=== PATIENT | male | born 1975 | race Caucasian/White ===

== ENCOUNTER 2016-12-25 20:20 | Emergency (ER) | payer MEDICAID ==
[2016-12-25] MEDS ORDERED: ASPIRIN 81 MG TABLET, CHEWABLE PO ONE (20:30)
--- NOTE | 2016-12-25 20:51 | ER Document Report ---
ED General - General Chief Complaint: Chest Pain Stated Complaint: CHEST PAIN Mode of Arrival: Medic Information source: Patient, Relative, Emergency Med Personnel Notes: Patient presents to the emergency department with complaints of left-sided chest pain that radiates down his arm. He reports that he was laying down of the that he started feeling funny tightness in his chest and shortness of breath , he felt like somebody was stepping on his chest. He reports his left hand became tingly and it radiated up his left arm. Patient reports that he felt dizzy and has vomited multiple times. reports that they were on their way to [facility] when he started passing out on her, she got scared and called ambulance. Ambulance brought him here. He denies history of trauma. He reports that he had an OK many years ago. He reports father had a OK at 45 years old. Patient does smoke. EMS gave him 3 sublingual nitros Zofran. The also placed Nitropaste on his chest. He reports no nausea at this time and reports pain almost gone. TRAVEL OUTSIDE OF THE [place] IN LAST 30 DAYS: No - HPI Onset: Just prior to arrival Onset/Duration: Sudden Quality of pain: Other - tightness Severity: Mild Pain Level: 2 Associated symptoms: Nausea, Vomiting Exacerbated by: Denies Relieved by: Denies Similar symptoms previously: Yes Recently seen / treated by doctor: No - Related Data Allergies/Adverse Reactions: No Known Allergies Allergy (Unverified 05/24/16 10:54) Home Medications: Current Home Medications Duloxetine HCl 60 mg PO BID 12/25/16 [History] Oxycodone HCl 20 mg PO BIDP PRN 12/25/16 [History] Past Medical History - General Information source: Patient - Social History Smoking Status: Current Every Day Smoker Cigarette use (# per day): Yes Chew tobacco use (# tins/day): No Smoking Education Provided: Yes Frequency of alcohol use: None Drug Abuse: None Lives with: Family Family History: Reviewed & Not Pertinent - Past Medical History Cardiac Medical History: Denies: Hx Coronary Artery Disease, Hx Heart Attack, Hx Hypertension Pulmonary Medical History: Denies: Hx Asthma, Hx Bronchitis, Hx COPD, Hx Pneumonia Neurological Medical History: Denies: Hx Cerebrovascular Accident, Hx Seizures Musculoskeltal Medical History: Denies Hx Arthritis Past Surgical History: Reports: Hx Orthopedic Surgery - Immunizations Hx Diphtheria, Pertussis, Tetanus Vaccination: Yes Review of Systems - Review of Systems Notes: Review HPI for review of systems., All other systems negative Physical Exam - Vital signs Vitals: Temp Pulse 98.5 F 71 12/25/16 20:20 12/25/16 20:20 - Notes Notes: PHYSICAL EXAMINATION: GENERAL: Well-appearing and in no acute distress nontoxic looking HEAD: Atraumatic, normocephalic. EYES: Pupils equal round and reactive to light, extraocular movements intact, sclera anicteric, conjunctiva are normal. ENT: nares patent, oropharynx clear without exudates. Moist mucous membranes. NECK: Normal range of motion, supple without lymphadenopathy LUNGS: CTAB and equal. No wheezes rales or rhonchi. HEART: Regular rate and rhythm without murmurs - nitro paste in place ABDOMEN: Soft, no tenderness. No guarding, no rebound BACK: Denies pain EXTREMITIES: Normal range of motion, no pitting edema. No cyanosis. NEUROLOGICAL: Cranial nerves grossly intact. Normal sensory/motor exams. PSYCH: Normal mood, normal affect. SKIN: Warm, Dry, normal turgor, no rashes or lesions noted Course - Re-evaluation Re-evalutation: 12/25/16 23:20 I was called back into patient room because he wants to leave AM. Apparently patient has a lawsuit pending against the hospital and he doesn't want to stay here. I discussed the importance of staying up evaluation of his heart. He declines patient was instructed on the possibility of leaving here having a heart attack and dying. He reports he will follow-up with his primary care provider in the morning. I instructed patient that if he did not feel comfortable here that he should go directly to another hospital. Patient verbalized understanding to everything I said but still reports he wants to leave [facility]. Dr Pereira updated on patient. The patient has decided not to proceed with further recommended testing or treatment to determine the cause of their symptoms. The risks and alternatives to the recommendations were discussed and the patient was understanding. The patient appears clinically to have the capacity to make this decision. Patient was instructed that he could return to the emergency department at any time to complete the testing treatment. - Vital Signs Vital signs: Temp Pulse Resp BP Pulse Ox 98.5 F 71 24 H 116/81 93 12/25/16 20:20 12/25/16 20:20 12/25/16 23:16 12/25/16 23:16 12/25/16 23:16 - Laboratory Result Diagrams: 12/25/16 20:35 12/25/16 20:35 Laboratory results interpreted by me: 12/25/16 12/25/16 20:35 20:35 RDW 14.5 H Sodium 145.5 H Chloride 111 H Glucose 129 H - Diagnostic Test Radiology reviewed: Image reviewed, Reports reviewed - RAD/ CHEST PA/LAT IMPRESSION: No acute findings. - EKG Interpretation by Me EKG shows normal: Sinus rhythm When compared to previous EKG there are: No significant change Discharge - Discharge Clinical Impression: Chest pain Qualifiers: Chest pain type: unspecified Qualified Code(s): R07.9 - Chest pain, unspecified Condition: Stable Disposition: AGAINST MEDICAL ADVICE Instructions: Aspirin (Cardiac) ([facility]), Chest Pain of Unclear Cause ([facility]) Additional Instructions: *You have been evaluated for chest pain *You have decided to leave against medical advice. Your evaluation has not been completed. You are at risk of leaving the Emergency Department and having a heart attack that could lead to your . *Follow up with your primary care provider tomorrow AM *Take aspirin daily *Return to [facility] ED for worsening condition, changes, needs *Return to ED if not better in 24 hours
[2016-12-25 20:53] LABS: ABSOLUTE BASOPHILS # (AUTO) 0.1 10^3/uL (0.0-0.2); ABSOLUTE EOSINOPHILS # (AUTO) 0.2 10^3/uL (0.0-0.6); ABSOLUTE LYMPHOCYTES (AUTO) 1.9 10^3/uL (0.5-4.7); ABSOLUTE MONOCYTES (AUTO) 0.6 10^3/uL (0.1-1.4); BASOPHILS % (AUTO) 0.7 % (0-2); EOSINOPHILS % (AUTO) 2.1 % (0-6); HEMATOCRIT 44.4 % (37.9-51.0); HEMOGLOBIN 15.3 g/dL (13.5-17.0); HGB HCT DIFFERENCE 1.5; LYMPHOCYTES % (AUTO) 24.1 % (13-45); MEAN CORPUSCULAR HEMOGLOBIN 30.7 pg (27.0-33.4); MEAN CORPUSCULAR HGB CONC 34.4 g/dL (32.0-36.0); MEAN CORPUSCULAR VOLUME 89 fl (80-97); RED BLOOD COUNT 4.97 10^6/uL (4.35-5.55); RED CELL DISTRIBUTION WIDTH 14.5 % (11.5-14.0); SEGMENTED NEUTROPHILS % (AUTO) 65.1 % (42-78); WHITE BLOOD COUNT 7.7 10^3/uL (4.0-10.5)
[2016-12-25 21:10] LABS: ALANINE AMINOTRANSFERASE 38 U/L (21-72); ALBUMIN 3.7 g/dL (3.5-5.0); ALKALINE PHOSPHATASE 92 U/L (38-126); ANION GAP 13 (5-19); ASPARTATE AMINO TRANSFERASE 34 U/L (17-59); BILIRUBIN,DIRECT 0.3 mg/dL (0.0-0.4); BILIRUBIN,TOTAL 0.5 mg/dL (0.2-1.3); BLOOD UREA NITROGEN 15 mg/dL (7-20); CALCIUM 9.3 mg/dL (8.4-10.2); CARBON DIOXIDE 22 mmol/L (22-30); CHLORIDE 111 mmol/L (98-107); CREATINE KINASE 72 U/L (55-170); CREATININE RESULT 0.86 mg/dL (0.52-1.25); GLUCOSE 129 mg/dL (75-110); POTASSIUM 4.3 mmol/L (3.6-5.0); SODIUM 145.5 mmol/L (137-145); TOTAL PROTEIN 6.3 g/dL (6.3-8.2)
[2016-12-25 21:21] LABS: CREATINE KINASE MB < 0.22 ng/mL (<4.55); TROPONIN I < 0.012 ng/mL
[2016-12-25 21:25] LABS: APPEARANCE,URINE SLIGHTLY-CLOUDY; BILIRUBIN,URINE NEGATIVE (NEGATIVE); GLUCOSE, URINE NEGATIVE (NEGATIVE); KETONES,URINE NEGATIVE (NEGATIVE); LEUKOCYTE ESTERASE,URINE NEGATIVE (NEGATIVE); NITRITE,URINE NEGATIVE (NEGATIVE); PROTEIN,URINE NEGATIVE (NEGATIVE); URINE SPECIFIC GRAVITY 1.026; UROBILINOGEN,URINE NEGATIVE mg/dL (<2.0)
[2016-12-25 23:24] VITALS: BP 116/81
--- NOTE | 2016-12-26 13:13 | EKG REPORT ---
SEVERITY:- OTHERWISE NORMAL ECG - SINUS RHYTHM BORDERLINE LEFT AXIS DEVIATION : Confirmed by: Mariana Wagner MD 26-Dec-2016 13:12:08
== END 2016-12-25 23:37 | disposition left against medical advice (07) ==
LOC: ER 20:20
DX: R07.9 Chest pain, unspecified (principal); R42 Dizziness and giddiness; F17.210 Nicotine dependence, cigarettes, uncomplicated; Z79.899 Other long term (current) drug therapy
CPT/HCPCS: 36415; 71020; 80053; 81001; 82550; 82553; 84484; 85025; 93005; 93010; 99285

== ENCOUNTER 2017-02-16 14:28 | Day surgery (SDC) | payer MEDICAID ==
[~2017-02-16 14:28] MED LIST: CEFAZOLIN 2 GM/D5W RTU 2 GM/50 ML RTUPB IV PRN; DEXAMETHASONE SOD PHOSPHATE INJ 4 MG/1 ML VIAL ONE; LIDOCAINE 2% INJ-PF (20 MG/ML) 10 ML AMPUL ONE; ONDANSETRON HCL INJ/PF 4 MG/2 ML SDV ONE; SUCCINYLCHOLINE CHLORIDE INJ 200 MG/10 ML VIAL ONE
[2017-02-16] MEDS ORDERED: CEFAZOLIN 2 GM/D5W RTU 2 GM/50 ML RTUPB IV ONE (14:44)
[2017-02-16 14:53] LABS: APPEARANCE,URINE CLEAR; BILIRUBIN,URINE NEGATIVE (NEGATIVE); GLUCOSE, URINE NEGATIVE (NEGATIVE); KETONES,URINE NEGATIVE (NEGATIVE); LEUKOCYTE ESTERASE,URINE NEGATIVE (NEGATIVE); NITRITE,URINE NEGATIVE (NEGATIVE); PROTEIN,URINE NEGATIVE (NEGATIVE); URINE SPECIFIC GRAVITY 1.015; UROBILINOGEN,URINE NEGATIVE mg/dL (<2.0)
[2017-02-16 15:03] LABS: HEMATOCRIT 46.4 % (37.9-51.0); HEMOGLOBIN 15.5 g/dL (13.5-17.0); HGB HCT DIFFERENCE 0.1; MEAN CORPUSCULAR HEMOGLOBIN 30.3 pg (27.0-33.4); MEAN CORPUSCULAR HGB CONC 33.5 g/dL (32.0-36.0); MEAN CORPUSCULAR VOLUME 91 fl (80-97); RED BLOOD COUNT 5.13 10^6/uL (4.35-5.55); RED CELL DISTRIBUTION WIDTH 13.7 % (11.5-14.0); WHITE BLOOD COUNT 8.1 10^3/uL (4.0-10.5)
[2017-02-16] MEDS ORDERED: HYDROMORPHONE HCL INJ/PF 2 MG/ML AMPULE ONE (15:15)
[2017-02-16] MEDS ORDERED: MIDAZOLAM 2 MG/2 ML INJ ONE (15:16)
[2017-02-16] MEDS ORDERED: PROPOFOL INJ 200 MG/20 ML VIAL IV ONE (15:16)
[2017-02-16] MEDS ORDERED: FENTANYL CITRATE INJ/PF 100 MCG/2 ML AMPUL ONE (15:16)
[2017-02-16 15:25] LABS: ANION GAP 11 (5-19); BLOOD UREA NITROGEN 12 mg/dL (7-20); CALCIUM 9.7 mg/dL (8.4-10.2); CARBON DIOXIDE 23 mmol/L (22-30); CHLORIDE 108 mmol/L (98-107); CREATININE RESULT 0.89 mg/dL (0.52-1.25); GLUCOSE 93 mg/dL (75-110); POTASSIUM 4.3 mmol/L (3.6-5.0); SODIUM 141.8 mmol/L (137-145)
[2017-02-16] MEDS ORDERED: ALBUTEROL SULFATE 0.083% NEB 2.5 MG/3 ML AMPUL NEB ONE (15:30)
[2017-02-16] MEDS ORDERED: RINGERS SOLUTION,LACTATED 1,000 ML IV PRN (16:00)
[2017-02-16] MEDS ORDERED: RINGERS SOLUTION,LACTATED 1,000 ML IV ONE (16:00)
[2017-02-16] MEDS ORDERED: PROMETHAZINE HCL INJ 25 MG/1 ML VIAL IV PRN (16:06)
[2017-02-16] MEDS ORDERED: FENTANYL CITRATE INJ/PF 100 MCG/2 ML AMPUL IV PRN ×3 (16:06)
[2017-02-16] MEDS ORDERED: MORPHINE SULFATE 10 MG/ML INJ IV PRN (16:06)
[2017-02-16] MEDS ORDERED: MEPERIDINE HCL/PF INJ 25 MG/1 ML DISP.SYRIN IV PRN (16:06)
[2017-02-16] MEDS ORDERED: OXYCODONE-ACETAMINOPHEN 5-325 MG TABLET PO PRN ×2 (16:06)
[2017-02-16] MEDS ORDERED: DIPHENHYDRAMINE HCL 50 MG/ML VIAL IV PRN (16:06)
[2017-02-16] MEDS ORDERED: BUPIVACAINE HCL 0.5 % INJ/PF 30 ML SDV ONE (16:30)
[2017-02-16] MEDS: FENTANYL CITRATE INJ/PF 100 MCG/2 ML AMPUL ONE ×2 (17:43→17:50)
--- NOTE | 2017-02-16 18:19 | PDOC DISCHARGE SUMMARY ---
Discharge Summary (SDC) - Discharge Final Diagnosis: Left calcaneal osteomyelitis Date of Surgery: 02/16/17 Discharge Date: 02/16/17 Forms: ASU Anesthesia D/C Instruction, Discharge POC-Surgical Service Prescriptions: Oxycodone HCl/Acetaminophen [Percocet 7.5-325 Mg Tablet] 1 - 2 each PO Q6HP PRN #60 tablet PRN Reason: Clindamycin HCl [Cleocin 300 mg Capsule] 600 mg PO Q6 #90 cap Sulfamethoxazole/Trimethoprim [Bactrim Ds Tablet] 1 each PO Q12 #60 tablet Referrals: NIDIA DAVIS MD [ACTIVE STAFF] - Discharge Diet: As Tolerated Respiratory Treatments at Home: Deep Breathing/Coughing Discharge Activity: Keep Legs Elevated, No Lifting/Push/Pulling Home Care Assistance: None Needed Adaptive Devices on Discharge: Axillary Crutches Report the Following to Your Physician Immediately: Shortness of Breath, Vomiting, Increase in Pain, Fever over 101 Degrees, Unusual Bleeding, Redness, Swelling, Warmth, Increased Soreness, Drainage-Yellow, Drainage-Green, Drainage- Foul Smelling, Visual Disturbance, Seizure
[2017-02-16] MEDS ORDERED: OXYCODONE-ACETAMINOPHEN 5-325 MG TABLET ONE (18:24)
[2017-02-16 19:26] VITALS: BP 137/83
--- NOTE | 2017-03-13 09:08 | OPERATIVE REPORT E ---
Operative Report NAME: ORIANA VALENCIA : 1975 AGE: 41Y DATE OF SURGERY: 02/16/2017 ROOM: PREOPERATIVE DIAGNOSIS: Osteomyelitis of the left calcaneus. POSTOPERATIVE DIAGNOSIS: Osteomyelitis of the left calcaneus. OPERATION: Calcaneal biopsy with irrigation, bone debridement, and antibiotic cement beads placed. SURGEON: NIDIA NANCE M.D. ESTIMATED BLOOD LOSS: 25 mL. COMPLICATIONS: None. DRAINS: None. IMPLANTS: As above antibiotic beads. PROCEDURE: Patient was brought to the operating room when he was induced and intubated in a supine position. Patient then was placed beanbag with a lazy lateral position exposing the lateral left calcaneus. A thigh tourniquet was applied to the left lower extremity and the left lower leg and foot was prepped and draped in a normal sterile surgical fashion. Time-out was done identifying the left calcaneus as the correct site. The leg was elevated for several minutes and then the tourniquet was inflated at 300 mmHg. I used an elliptical incision to pick out the draining portion of the wound and then extended the wound both proximally and distally increasing the incision size almost a third of the initial previous incision. The elliptical portion with the draining wound was then sent to pathology. Dissection was taken quickly down to the calcaneus through previous scar tissue. I was able to expose and find the previous holes from the previous bone biopsies and then extended this an did a saucerization. I also used curettes to debride the bone and then from this I sent bone for cultures and pathology. I measured the area to be 2.5 mm in length x 9 mm in width and about 5 mm in depth. Bone did not look necrotic. In fact, it looked red and healthy with some sclerotic areas from the previous surgery but no pus. I proceeded to use then bulb irrigation to clean the wound and the debrided bone portion. Then, I proceeded to mix cement with Tobramycin mixed in it (1 gram). Once the cement was hardened to the consistency of putty, a couple of these were made and Prolene stitch was passed through them to keep them secure. Only two beads were made to fit the area of concern. Pictures were taken showing the beads in the defect. Proceeded to irrigate again the wound once the cement had hardened and to close the wound. I used a couple of PDS to approximate the calcaneus tissue. I then used a 3-0 Monocryl to do a subcuticular closure and applied Dermabond to seal the wound. I applied Steri-Strips over the Dermabond to further help with avoiding wound dehiscence. Then, I proceeded to place 4 x 4 dressing followed by ABD and soft roll. I proceeded to prepare for an Orthoglass splint to place a short-leg splint on the patient and then over wrapped it with an Nando bandage. The tourniquet was let down and the patient was placed in a supine position where he was extubated and sent to PACU in a stable condition. DICTATING PHYSICIAN: Malika DA SILVA [id number] PHY#: [id number] ID: [id number] JOB#: [id number] ACCT: [id number] cc:NIDIA NANCE M.D. >
== END 2017-02-16 19:24 | disposition home or self-care (01) ==
LOC: OROUT 14:28
PROVIDERS: ATTEND Orthopaedic Surgery
PROC: 3E01329 Introduction of Other Anti-infective into Subcutaneous Tissue, Percutaneous Approach (ICD-10-PCS; 2017-02-16)
PROC: 0QBM0ZZ Excision of Left Tarsal, Open Approach (ICD-10-PCS; principal; 2017-02-16 16:45)
DX: M86.9 Osteomyelitis, unspecified (principal); L03.119 Cellulitis of unspecified part of limb; M25.579 Pain in unspecified ankle and joints of unspecified foot; J45.909 Unspecified asthma, uncomplicated; F10.21 Alcohol dependence, in remission; Z86.14 Personal history of Methicillin resistant Staphylococcus aureus infection
CPT/HCPCS: 36415; 87070; 87205; 85027; 87075; 87077; 80048; 81001; 87186; 88305 ×2; 88312 ×2; 88311; 11044; J2250; J1100; J3010; J1170; J0330; J2405; J2704; J3490; J0690; 1480

== ENCOUNTER 2017-02-24 18:20 | Inpatient (IN) | payer MEDICAID ==
--- NOTE | 2017-02-24 19:33 | ER Document Report ---
ED Medical Screen (RME) - General Chief Complaint: Foot Pain Stated Complaint: POST OP PROBLEMS, FEVER Time Seen by Provider: 02/24/17 19:26 Mode of Arrival: Wheelchair Information source: Patient, Relative TRAVEL OUTSIDE OF THE [place] IN LAST 30 DAYS: No - HPI Patient complains to provider of: L anle pain/post-op Onset: Yesterday - pt. s/p multiple surgeries on L ankle per Dr. Venegas -- most recently had staph infeciton of the bone being treated with multiple abx -- told to come to ED by his PCP due to fever of 101 at home - Related Data Allergies/Adverse Reactions: No Known Allergies Allergy (Verified 02/24/17 19:15) Past Medical History - Past Medical History Cardiac Medical History: Denies: Hx Coronary Artery Disease, Hx Heart Attack, Hx Hypertension Pulmonary Medical History: Denies: Hx Asthma, Hx Bronchitis, Hx COPD, Hx Pneumonia Neurological Medical History: Denies: Hx Cerebrovascular Accident, Hx Seizures Renal/ Medical History: Denies: Hx Peritoneal Dialysis Musculoskeltal Medical History: Denies Hx Arthritis Past Surgical History: Reports: Hx Orthopedic Surgery - Immunizations Hx Diphtheria, Pertussis, Tetanus Vaccination: Yes Physical Exam - Vital signs Vitals: Temp Pulse Resp Pulse Ox 98.1 F 87 20 97 02/24/17 19:19 02/24/17 19:19 02/24/17 19:19 02/24/17 19:19 Course - Vital Signs Vital signs: Temp Pulse Resp BP Pulse Ox 98.1 F 87 20 97 02/24/17 19:19 02/24/17 19:19 02/24/17 19:19 02/24/17 19:19
[2017-02-24 20:09] LABS: ABSOLUTE BASOPHILS # (AUTO) 0.1 10^3/uL (0.0-0.2); ABSOLUTE EOSINOPHILS # (AUTO) 0.2 10^3/uL (0.0-0.6); ABSOLUTE LYMPHOCYTES (AUTO) 2.3 10^3/uL (0.5-4.7); ABSOLUTE MONOCYTES (AUTO) 0.7 10^3/uL (0.1-1.4); BASOPHILS % (AUTO) 0.7 % (0-2); EOSINOPHILS % (AUTO) 2.3 % (0-6); HEMATOCRIT 48.5 % (37.9-51.0); HEMOGLOBIN 16.3 g/dL (13.5-17.0); HGB HCT DIFFERENCE 0.4; LYMPHOCYTES % (AUTO) 28.5 % (13-45); MEAN CORPUSCULAR HEMOGLOBIN 30.3 pg (27.0-33.4); MEAN CORPUSCULAR HGB CONC 33.5 g/dL (32.0-36.0); MEAN CORPUSCULAR VOLUME 90 fl (80-97); MONOCYTES % (AUTO) 8.3 % (3-13); RED BLOOD COUNT 5.37 10^6/uL (4.35-5.55); RED CELL DISTRIBUTION WIDTH 13.6 % (11.5-14.0); SEGMENTED NEUTROPHILS % (AUTO) 60.2 % (42-78); WHITE BLOOD COUNT 8.2 10^3/uL (4.0-10.5)
[2017-02-24 20:13] LABS: APPEARANCE,URINE SLIGHTLY-CLOUDY; BILIRUBIN,URINE NEGATIVE (NEGATIVE); GLUCOSE, URINE NEGATIVE (NEGATIVE); KETONES,URINE NEGATIVE (NEGATIVE); LEUKOCYTE ESTERASE,URINE NEGATIVE (NEGATIVE); NITRITE,URINE NEGATIVE (NEGATIVE); PROTEIN,URINE NEGATIVE (NEGATIVE); PROTHROMBIN TIME 12.3 SEC (11.4-15.4); URINE SPECIFIC GRAVITY 1.026; UROBILINOGEN,URINE NEGATIVE mg/dL (<2.0)
[2017-02-24] MEDS ORDERED: KETOROLAC TROMETHAMINE INJ/PF 30 MG/1 ML SDV IV ONE (20:22)
[2017-02-24 20:25] LABS: ALANINE AMINOTRANSFERASE 31 U/L (21-72); ALBUMIN 4.3 g/dL (3.5-5.0); ALKALINE PHOSPHATASE 70 U/L (38-126); ANION GAP 12 (5-19); ASPARTATE AMINO TRANSFERASE 28 U/L (17-59); BILIRUBIN,DIRECT 0.3 mg/dL (0.0-0.4); BILIRUBIN,TOTAL 0.7 mg/dL (0.2-1.3); BLOOD UREA NITROGEN 16 mg/dL (7-20); CALCIUM 9.8 mg/dL (8.4-10.2); CARBON DIOXIDE 22 mmol/L (22-30); CHLORIDE 109 mmol/L (98-107); GLUCOSE 93 mg/dL (75-110); POTASSIUM 4.5 mmol/L (3.6-5.0); SODIUM 142.8 mmol/L (137-145); TOTAL PROTEIN 7.3 g/dL (6.3-8.2)
--- NOTE | 2017-02-24 20:43 | RADIOLOGY REPORT (SQ) ---
EXAM DESCRIPTION: ANKLE LEFT COMPLETE COMPLETED DATE/TIME: 02/24/2017 8:28 pm REASON FOR STUDY: L ankle pain/post- op COMPARISON: CT 08/09/2016 and radiographs 07/01/2016 and 06/22/2016 NUMBER OF VIEWS: Three views. TECHNIQUE: AP, lateral, and oblique radiographic images acquired of the left ankle. LIMITATIONS: None. FINDINGS: MINERALIZATION: Osseous sclerosis is seen in the region of the previous lucency involving the posterior calcaneus. Mineralization is otherwise normal. BONES: No acute fracture or dislocation. No worrisome bone lesions. A small amount of heterotopic ca lcification is seen at the insertion of the Achilles tendon. A tiny plantar enthesophyte is present. JOINTS: No effusions. SOFT TISSUES: Ill-defined increased density is seen within Kager's fat pad. No foreign body. OTHER: No other significant finding. IMPRESSION: Sclerosis seen in the region of a previously described calcaneal lucency is nonspecific, and may represent continued postprocedural healing. Subtle soft tissue stranding seen within Kager' s fat pad may represent postprocedural scarring; however, acute inflammation may have a similar appea sunday. Recommend correlation for possible soft tissue inflammatory change. TECHNICAL DOCUMENTATION: JOB ID: [id number] [employer]- All Rights Reserved
--- NOTE | 2017-02-24 20:47 | ER Document Report ---
ED Extremity Problem, Lower - General Chief Complaint: Foot Pain Stated Complaint: POST OP PROBLEMS, FEVER Time Seen by Provider: 02/24/17 19:26 Mode of Arrival: Ambulatory Information source: Patient Notes: 41 yo with hx left ankle MRSA, staph, 2 other bacteria, 4th ankle surgery dr. melara 02-16, post op recheck on sunday (2mg dilaudid in between since sunday every 5 hours), 20mg oxycodone 4-5 per day without working, much worse last night. temperature today 101.6. The negative air vac vibrating, worked on it wasn't sucking, took it off. (full ankle hx- Hx arthrits in left ankle 1 year ago, got infected in skin, 2 more surgery within 60 days, still wasn't healing, recent MRI showed osteomylitis in several areas, bone biopsy showed- sent to [facility]- referral for picc line not in yet- on bactrim and cipro now, antibiotic carlos in the bone hoping to fight it from the inside.) No cough or SOB, No n/v/d. TRAVEL OUTSIDE OF THE [place] IN LAST 30 DAYS: No - Related Data Allergies/Adverse Reactions: No Known Allergies Allergy (Verified 02/24/17 19:15) Home Medications: Current Home Medications Hydromorphone HCl [Dilaudid] 2 mg PO Q6 02/25/17 [History] Meloxicam [Mobic 7.5 mg Tablet] 7.5 mg PO BID 02/25/17 [History] Oxycodone HCl [Oxycodone HCl 10 MG Tablet] 10 mg PO Q12HP PRN 02/25/17 [History] Oxycodone HCl/Acetaminophen [Oxycodon-Acetaminophen 7.5-325] 1 tab PO Q6HP PRN 02/25/17 [History] Past Medical History - General Information source: Patient, Relative - Social History Smoking Status: Current Every Day Smoker Frequency of alcohol use: None Drug Abuse: None Lives with: Spouse/Significant other Family History: Reviewed & Not Pertinent Renal/ Medical History: Denies: Hx Peritoneal Dialysis Musculoskeltal Medical History: Reports Other - osteomylitis Past Surgical History: Reports: Hx Orthopedic Surgery - Immunizations Hx Diphtheria, Pertussis, Tetanus Vaccination: Yes Review of Systems - Review of Systems Constitutional: See HPI EENT: No symptoms reported Cardiovascular: No symptoms reported Respiratory: No symptoms reported Gastrointestinal: No symptoms reported Genitourinary: No symptoms reported Male Genitourinary: No symptoms reported Musculoskeletal: See HPI Skin: No symptoms reported Hematologic/Lymphatic: No symptoms reported Neurological/Psychological: No symptoms reported Physical Exam - Vital signs Vitals: Temp Pulse Resp Pulse Ox 98.1 F 87 20 97 02/24/17 19:19 02/24/17 19:19 02/24/17 19:19 02/24/17 19:19 Interpretation: Normal - General General appearance: Appears well, Alert, Anxious In distress: None - HEENT Head: Normocephalic, Atraumatic Eyes: Normal Pupils: PERRL Neck: Supple - Respiratory Respiratory status: No respiratory distress Chest status: Nontender Breath sounds: Normal Chest palpation: Normal - Cardiovascular Rhythm: Regular Heart sounds: Normal auscultation Murmur: No - Abdominal Inspection: Normal Distension: No distension Bowel sounds: Normal Tenderness: Nontender. No: Tender Organomegaly: No organomegaly - Back Back: Normal, Nontender. No: CVA tenderness - Extremities General upper extremity: Normal inspection, Nontender, Normal color, Normal ROM , Normal temperature General lower extremity: Normal inspection, Nontender, Normal color, Normal ROM , Normal temperature, Normal weight bearing. No: Gerson's sign Ankle: Tender - inflamed soft tissue post. calcaneus, achilles. no pus, warm joint, mild swelling, 2+ DP,no lower leg tenderness or swelling. - Neurological Neuro grossly intact: Yes Cognition: Normal Orientation: AAOx4 Grandin Coma Scale Eye Opening: Spontaneous Ebonie Coma Scale Verbal: Oriented Grandin Coma Scale Motor: Obeys Commands Grandin Coma Scale Total: 15 Speech: Normal Motor strength normal: LUE, RUE, LLE, RLE Sensory: Normal - Psychological Associated symptoms: Normal affect, Normal mood - Skin Skin Temperature: Warm Skin Moisture: Dry Skin Color: Normal Course - Re-evaluation Re-evalutation: 02/24/17 21:49 called MR and they can not do the MR flor, will have to be in the morning. 02/24/17 21:[address] michael for antibiotic orders, he also states pt needs to be admitted to ortho. 02/24/17 22:56 pt had 0 pain after dilaudid 2mg IV. asking for more pain rx at this time. chest xray is negative. Page to dr. ascencio , left message on his cell phone. calling acoustic sensor operator back, no other way to reach him. 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 labs normal, lactic acid negative. EKG NSR 02/24/17 23:25 dr ascencio did not return call, calling his cell phone again, left message. Dr. michael rec. that the pt be admitted to the ER, if dr. ascencio will not return call, then transfer the pt. to another hospital since we have no orthopedic surgeon process control specialist for the ER tonight. 02/25/17 00:05 dr ascencio as not returned call, 3rd call to cell phone through the acoustic sensor operator at this time 02/25/17 00:17 dr. guo [facility] hospitalist will not admit for medical pending orthopedic to see pt in am and MRI that they could do in the morning. 02/25/17 00:20 Patient prefers to be transferred to [place] to orthopedics there. 02/25/17 00:23 call to [facility] orthopedics. fax # [phone] demo information. Pt PCP is dr. Rubalcava [facility] internal medicine in [place]. Pt lives in [place]. 02/25/17 00:34 pt in room and they want to go to [facility] 02/25/17 00:45 dr Dyer recommended calling Dr. Calzada cell phone at [phone] concerned that transferring the patent because dr. ascencio was not calling me back. Dr Calzada has agreed to admit the patient for 23 hour observation and to order the MRI in the morning. 02/25/17 09:15 - Vital Signs Vital signs: Temp Pulse Resp BP Pulse Ox 97.7 F 49 L 17 111/72 95 02/25/17 11:21 02/25/17 11:21 02/25/17 11:21 02/25/17 11:21 02/25/17 11:21 - Laboratory Result Diagrams: 02/24/17 19:50 02/24/17 19:50 Laboratory results interpreted by me: 02/24/17 19:50 Chloride 109 H Discharge - Discharge Clinical Impression: ankle, foot, tib/fib pain, Fever, post op osteomylitis Disposition: ADMITTED OBSERVATION Admitting Provider: [facility] Unit Admitted: Medical Floor
[2017-02-24 20:57] LABS: VENOUS BLOOD BASE EXCESS -0.6 mmol/L; VENOUS BLOOD PCO2 44.1 mmHg (35-63); VENOUS BLOOD PH 7.37 (7.30-7.42)
[2017-02-24] MEDS ORDERED: ONDANSETRON HCL INJ/PF 4 MG/2 ML SDV IV ONE (21:34)
[2017-02-24] MEDS ORDERED: HYDROMORPHONE HCL INJ/PF 2 MG/ML AMPULE IV ONE ×2 (21:34→22:40)
[2017-02-24] MEDS ORDERED: VANCOMYCIN HCL INJ 1000 MG VIAL IV ONE (21:53)
[2017-02-24] MEDS ORDERED: AZTREONAM INJ 1 GM VIAL IV ONE (21:54)
--- NOTE | 2017-02-24 22:47 | RADIOLOGY REPORT (SQ) ---
EXAM DESCRIPTION: CHEST PA/LAT COMPLETED DATE/TIME: 02/24/2017 10:13 pm REASON FOR STUDY: fever, post op 5-26 COMPARISON: 12/25/2016 EXAM PARAMETERS: NUMBER OF VIEWS: two views TECHNIQUE: Digital Frontal and Lateral radiographic views of the chest acquired. RADIATION DOSE: NA LIMITATIONS: none FINDINGS: LUNGS AND PLEURA: No opacities, masses or pneumothorax. No pleural effusion. MEDIASTINUM AND HILAR STRUCTURES: No masses or contour abnormalities. HEART AND VASCULAR STRUCTURES: Heart normal size. No evidence for failure. BONES: No acute findings. HARDWARE: None in the chest. OTHER: No other significant finding. IMPRESSION: NO SIGNIFICANT RADIOGRAPHIC FINDING IN THE CHEST. TECHNICAL DOCUMENTATION: JOB ID: [id number] [employer]- All Rights Reserved
[2017-02-25] MEDS ORDERED: HYDROMORPHONE HCL INJ/PF 2 MG/ML AMPULE IV ONE (00:14)
[2017-02-25] MEDS ORDERED: DIPHENHYDRAMINE HCL 50 MG/ML VIAL IV ONE (00:33)
[2017-02-25] MEDS ORDERED: HYDROMORPHONE HCL INJ/PF 2 MG/ML AMPULE ONE (01:49)
[2017-02-25] MEDS: HYDROMORPHONE HCL INJ/PF 2 MG/ML AMPULE IV PRN ×11 (03:16→22:19)
[2017-02-25] MEDS ORDERED: IMIPENEM/CILASTATIN SODIUM INJ 500 MG VIAL IV ONE (08:42)
--- NOTE | 2017-02-25 08:49 | PDOC H&P ---
History of Present Illness Admission Date/PCP: 02/25/17 00:45 Patient complains of: left ankle pain History of Present Illness: 41 yo with hx left ankle MRSA, staph, 2 other bacteria, 4th ankle surgery dr. melara 02-16, post op recheck on sunday (2mg dilaudid in between since sunday every 5 hours), 20mg oxycodone 4-5 per day. States the pain significantly worsened over the past 24 hours and presented to the emergency room. He has been treated with antibiotics in the past and currently taking Cipro and Bactrim. Pain is worse with motion and attempted ambulation. Has noted fever of 101.6. Past Medical History Cardiac Medical History: Denies: Coronary Artery Disease, Myocardial Infarction, Hypertension Pulmonary Medical History: Denies: Asthma, Bronchitis, Chronic Obstructive Pulmonary Disease (COPD), Pneumonia Neurological Medical History: Denies: Seizures Musculoskeltal Medical History: Denies: Arthritis Hematology: Denies: Anemia Past Surgical History Past Surgical History: Reports: Orthopedic Surgery Social History Smoking Status: Current Every Day Smoker Cigarettes Packs Per Day: 0.5 Number of Years Smokin Last Time Smoked: 02/24/2017 Frequency of Alcohol Use: None Hx Recreational Drug Use: No Drugs: None Hx Prescription Drug Abuse: No Family History Family History: Reviewed & Not Pertinent Parental Family History Reviewed: No Children Family History Reviewed: No Sibling(s) Family History Reviewed.: No Medication/Allergy Home Medications: Oxycodone HCl 20 mg PO BIDP PRN 12/25/16 Ciprofloxacin HCl [Cipro 500 mg Tablet] 1 tab PO BID 02/25/17 Hydromorphone HCl [Dilaudid 2 mg Tablet] 2 mg PO Q6 PRN 02/25/17 Sulfamethoxazole/Trimethoprim [Bactrim Ds Tablet] 2 each PO Q12 02/25/17 Allergies/Adverse Reactions: No Known Allergies Allergy (Verified 02/24/17 19:15) Review of Systems Constitutional: PRESENT: fever(s), night sweats, weakness. ABSENT: chills, headache(s), weight gain, weight loss Eyes: ABSENT: visual disturbances Ears: ABSENT: hearing changes Cardiovascular: ABSENT: chest pain, dyspnea on exertion, edema, orthropnea, palpitations Respiratory: ABSENT: cough, hemoptysis Gastrointestinal: ABSENT: abdominal pain, constipation, diarrhea, hematemesis, hematochezia, nausea, vomiting Genitourinary: ABSENT: dysuria, hematuria Musculoskeletal: PRESENT: as per HPI Integumentary: ABSENT: rash, wounds Neurological: ABSENT: abnormal gait, abnormal speech, confusion, dizziness, focal weakness, syncope Psychiatric: ABSENT: anxiety, depression, homidical ideation, suicidal ideation Endocrine: ABSENT: cold intolerance, heat intolerance, menstrual abnormalities, polydipsia, polyuria Hematologic/Lymphatic: ABSENT: easy bleeding, easy bruising, lymphadenopathy Physical Exam Vital Signs: Temp Pulse Resp BP Pulse Ox 97.6 F 74 17 120/81 93 02/25/17 07:18 02/25/17 07:18 02/25/17 07:18 02/25/17 07:18 02/25/17 07:18 Intake & Output 02/24/17 02/25/17 02/26/17 06:59 06:59 06:59 Output Total 250 Balance -250 Weight 74.9 kg General appearance: PRESENT: no acute distress, well-developed, well-nourished Head exam: PRESENT: atraumatic, normocephalic Eye exam: PRESENT: conjunctiva pink, EOMI, PERRLA. ABSENT: scleral icterus Ear exam: PRESENT: normal external ear exam Mouth exam: PRESENT: moist, tongue midline Neck exam: PRESENT: full ROM. ABSENT: carotid bruit, JVD, lymphadenopathy, thyromegaly Cardiovascular exam: PRESENT: RRR. ABSENT: diastolic murmur, rubs, systolic murmur Pulses: PRESENT: normal dorsalis pedis pul, +2 pedal pulses bilateral Vascular exam: PRESENT: normal capillary refill GI/Abdominal exam: PRESENT: normal bowel sounds, soft. ABSENT: distended, guarding, mass, organolmegaly, rebound, tenderness Rectal exam: PRESENT: deferred Musculoskeletal exam: PRESENT: other - Left ankle: Surgical incision well approximated. No erythema or drainage. No palpable fluctuance. Patient has hypoesthesia along the dorsum of the foot that he states radiates up his leg. No tracking erythema. Intact plantar flexion/dorsiflexion however pain with motion. Neurological exam: PRESENT: alert, awake, oriented to person, oriented to place , oriented to time, oriented to situation, CN II-XII grossly intact. ABSENT: motor sensory deficit Psychiatric exam: PRESENT: appropriate affect, normal mood. ABSENT: homicidal ideation, suicidal ideation Skin exam: PRESENT: dry, intact, warm. ABSENT: cyanosis, rash Results Impressions: Ankle X-Ray 02/24/17 19:30 IMPRESSION: Sclerosis seen in the region of a previously described calcaneal lucency is nonspecific, and may represent continued postprocedural healing. Subtle soft tissue stranding seen within Kager's fat pad may represent postprocedural scarring; however, acute inflammation may have a similar appearance. Recommend correlation for possible soft tissue inflammatory change. Chest X-Ray 02/24/17 21:33 IMPRESSION: NO SIGNIFICANT RADIOGRAPHIC FINDING IN THE CHEST. Assessment & Plan - Diagnosis (1) Post op infection Qualifiers: Encounter type: subsequent encounter Qualified Code(s): T81.4XXD - Infection following a procedure, subsequent encounter Is this a current diagnosis for this admission?: YesPlan: Patient has fairly substantial history of infection of his left ankle. He has been treated with multiple surgeries including irrigation and debridement. Most recent surgery demonstrated underlying Pseudomonas and Staphylococcus infection. At this point I have recommended admission for observation and starting him on IV imipenem which covers both the Pseudomonas and staph. Will consider possible PICC line placement. Will attempt to get his pain controlled however patient does take a fair amount of pain medication which is somewhat concerning. I also discussed the importance of tobacco cessation and its negative effect on wound healing. Anticipate discharge in next 48 hours.
--- NOTE | 2017-02-25 09:24 | EKG REPORT ---
SEVERITY:- ABNORMAL ECG - SINUS RHYTHM NONSPECIFIC INTRAVENTRICULAR CONDUCTION DELAY : Confirmed by: Keyanna Thorne 25-Feb-2017 09:23:47
[2017-02-25] MEDS: OXYCODONE HCL SR 10 MG TABLET PO SCH ×2 (09:40→21:10)
[2017-02-25] MEDS: FAMOTIDINE 20 MG TABLET PO SCH ×2 (09:41→21:10)
[2017-02-25] MEDS: DOCUSATE SODIUM 100 MG CAPSULE PO SCH ×2 (09:41→17:25)
[2017-02-25] MEDS: KETOROLAC TROMETHAMINE INJ/PF 30 MG/1 ML SDV IV PRN ×2 (10:36→18:46)
[2017-02-25] MEDS: IMIPENEM/CILASTATIN SODIUM 500 MG in NORMAL SALINE 100 ML IV SCH ×3 (12:33→23:44)
[2017-02-25] MEDS: ONDANSETRON HCL INJ/PF 4 MG/2 ML SDV IV PRN (14:20)
[2017-02-25] MEDS: DIPHENHYDRAMINE HCL 25 MG CAPSULE PO PRN (21:06)
[2017-02-25] MEDS: RIVAROXABAN 10 MG TABLET PO SCH (21:08)
[2017-02-25] MEDS: ZOLPIDEM TARTRATE 5 MG TABLET PO SCH (23:17)
[2017-02-26] MEDS: HYDROMORPHONE HCL INJ/PF 2 MG/ML AMPULE IV PRN ×10 (01:36→23:15)
[2017-02-26] MEDS: IMIPENEM/CILASTATIN SODIUM 500 MG in NORMAL SALINE 100 ML IV SCH ×4 (05:50→23:15)
[2017-02-26] MEDS: KETOROLAC TROMETHAMINE INJ/PF 30 MG/1 ML SDV IV PRN (07:43)
[2017-02-26 07:44] LABS: HEMATOCRIT 48.1 % (37.9-51.0); HEMOGLOBIN 15.8 g/dL (13.5-17.0); HGB HCT DIFFERENCE -0.7; MEAN CORPUSCULAR HEMOGLOBIN 29.9 pg (27.0-33.4); MEAN CORPUSCULAR HGB CONC 32.8 g/dL (32.0-36.0); MEAN CORPUSCULAR VOLUME 91 fl (80-97); RED BLOOD COUNT 5.28 10^6/uL (4.35-5.55); RED CELL DISTRIBUTION WIDTH 13.6 % (11.5-14.0); WHITE BLOOD COUNT 7.2 10^3/uL (4.0-10.5)
[2017-02-26 07:54] LABS: ANION GAP 10 (5-19); BLOOD UREA NITROGEN 12 mg/dL (7-20); C-REACTIVE PROTEIN 6.8 mg/L (<10.0); CALCIUM 9.3 mg/dL (8.4-10.2); CARBON DIOXIDE 27 mmol/L (22-30); CHLORIDE 102 mmol/L (98-107); CREATININE RESULT 1.01 mg/dL (0.52-1.25); GLUCOSE 110 mg/dL (75-110); SODIUM 138.5 mmol/L (137-145)
[2017-02-26 08:27] LABS: ERYTHROCYTE SEDIMENTATION RATE 9 mm/hr (0-15)
[2017-02-26] MEDS: OXYCODONE HCL SR 10 MG TABLET PO SCH ×2 (09:14→21:51)
[2017-02-26] MEDS: DOCUSATE SODIUM 100 MG CAPSULE PO SCH ×2 (09:14→17:35)
[2017-02-26] MEDS: FAMOTIDINE 20 MG TABLET PO SCH ×2 (09:15→21:50)
--- NOTE | 2017-02-26 10:43 | Physician Advisory Note ---
Physician Advisor ProgressNote .: Pursuant to the plan for [facility], I have reviewed the medical record for this patient. Physician Advisor Statement: STatus: Medicaid pt w/mult Lt ankle surgeries/osteomyelitis including MRSA & Pseudomona , to ED due to fever 101.6 reported, & uncontrolled worsening pain. Initially reasonable for Outpt Obs status w/plan for MRI & PICC line to get IV abx at home, IV Dilaudid PRN for pain initially. However, since coming in on 02/24 PM, pt has required repeated, very frequent doses IV Dilaudid, a total of 11 doses on 02/25 alone, 4 more already this AM. Attending is appropriately concerned about pt's pain Rx use/needs, & has consulted pain simulation specialist 6 AM. Pt has had notable bradycardia as low as 49 on 02/25 & O2 sat has dropped as low as 90% at 15:27 on 02/25 - perhaps an " adverse effect of the IV DIlaudid"? Appropriate to change to Inpt status due to unstable VS & ongoing needs for high dose repeated doses of IV Dilaudid for pain control in addition to ongoing needs for IV abx. High risk for morbidity in this setting if not in hospital inpatient care. CK
--- NOTE | 2017-02-26 14:35 | RADIOLOGY REPORT (SQ) ---
EXAM DESCRIPTION: PICC INSERTION; FLUORO/CV PLACEMENT; U/S GUIDE FOR VASCULAR ACCESS COMPLETED DATE/TIME: 02/26/2017 12:00 pm REASON FOR STUDY: senior care antibiotics; CARE HOME ABX COMPARISON: None. FLUOROSCOPY TIME: 17 seconds 1 digital chest radiograph and 1 ultrasound images saved to PACS. TECHNIQUE: Fluoroscopic and ultrasound guided PICC placement. LIMITATIONS: None. PROCEDURE: After written consent and assessment were obtained, the patient was brought into the fluo roscopy room and place supine on the table. Ultrasound was used on the patient's right arm for PICC access. The right arm was prepped and draped in a sterile fashion along with the ultrasound probe. Th e entry site was anesthetized with 4 mL of 1% lidocaine. A 21 gauge 7 cm needle was advanced through the skin and into the right basilic vein under live ultrasound guidance. An ultrasound image was nichole ed to PACS confirming access site. A .018 guide wire was then inserted through the needle and into t he venous system. The needle was the removed and an 11 blade scalpel was used to make a 1cm skin inci fiona. A 5 fr peel-away sheath was advanced over the wire and into the venous system. A measurement w as then made using the existing wire and live fluoroscopic guidance. The wire was then removed and th e trimmed. The PICC was advanced through the peel-away sheath and into the venous system. The peel-aw ay sheath was removed and the catheter was adhered to the patients arm with a stat lock. The catheter was then aspirated and flushed and a sterile bandage was placed over the access site. A fluoroscopi c spot image was saved to PACS confirming the catheter tip within the superior vena cava. IMPRESSION: SUCCESSFUL PLACEMENT OF A 5 FR DUAL LUMEN 34 CM PICC IN THE right basilic VEIN. COMMENT: Patient medication list reviewed: Yes- Quality ID# [id number]:Eligible professional attests to doc umenting in the medical record they obtained, updated, or reviewed the patient's current medications. . Quality ID 145: Final reports for procedures using fluoroscopy that document radiation exposure iraj annalisa, or exposure time and number of fluorographic images (if radiation exposure indices are not avail able) Quality ID #76: The patient was prepped and draped using maximum sterile barrier technique including cap, mask, sterile gown, sterile gloves, a large sterile sheet, hand hygiene, and 2% Chlorhexidine fo r cutaneous antisepsis. When ultrasound is used, sterile ultrasound techniques are followed requiring sterile gel and sterile probes. TECHNICAL DOCUMENTATION: JOB ID: [id number] [email or web address]- All Rights Reserved
[2017-02-26] MEDS ORDERED: NORMAL SALINE 10 ML SDV (AFTER EACH USE) IV PRN (14:52)
[2017-02-26] MEDS: DIPHENHYDRAMINE HCL 25 MG CAPSULE PO PRN (15:07)
[2017-02-26] MEDS: OXYCODONE-ACETAMINOPHEN 5-325 MG TABLET PO PRN (15:11)
[2017-02-26] MEDS: RIVAROXABAN 10 MG TABLET PO SCH (21:50)
[2017-02-26] MEDS: ZOLPIDEM TARTRATE 5 MG TABLET PO SCH (21:51)
[2017-02-26] MEDS: NORMAL SALINE 10 ML SDV (SCHEDULED) IV SCH (21:51)
[2017-02-26] MEDS: ONDANSETRON HCL INJ/PF 4 MG/2 ML SDV IV PRN (23:24)
[2017-02-27] MEDS: HYDROMORPHONE HCL INJ/PF 2 MG/ML AMPULE IV PRN ×5 (02:54→23:53)
[2017-02-27] MEDS: IMIPENEM/CILASTATIN SODIUM 500 MG in NORMAL SALINE 100 ML IV SCH ×3 (05:33→18:06)
[2017-02-27] MEDS: ONDANSETRON HCL INJ/PF 4 MG/2 ML SDV IV PRN ×2 (07:54→19:00)
[2017-02-27] MEDS: DOCUSATE SODIUM 100 MG CAPSULE PO SCH ×2 (09:11→18:06)
[2017-02-27] MEDS: NORMAL SALINE 10 ML SDV (SCHEDULED) IV SCH ×2 (09:12→21:45)
[2017-02-27] MEDS: OXYCODONE HCL SR 10 MG TABLET PO SCH ×2 (09:12→21:44)
[2017-02-27] MEDS: FAMOTIDINE 20 MG TABLET PO SCH ×2 (09:12→21:44)
[2017-02-27] MEDS: KETOROLAC TROMETHAMINE INJ/PF 30 MG/1 ML SDV IV PRN (11:25)
--- NOTE | 2017-02-27 14:45 | PDOC PROGRESS REPORT ---
Subjective Progress Note for:: 02/26/17 Subjective:: Patient is at bedside complaining of intractable pain yet also complaining of decreased sensation of the entire foot that does not follow any dermatome distribution. Patient is requiring increase amount of opioid that he states is not touching his pain. Denies any drainage or redness of the wound. Physical Exam Vital Signs: Temp Pulse Resp BP Pulse Ox 36.8 C 66 18 137/81 H 96 02/27/17 11:44 02/27/17 11:44 02/27/17 11:44 02/27/17 11:44 02/27/17 11:44 Intake & Output 02/26/17 02/27/17 02/28/17 06:59 06:59 06:59 Intake Total 2144 1500 Output Total 1550 600 Balance 594 900 Weight 74.9 kg 73.2 kg General appearance: PRESENT: no acute distress Eye exam: PRESENT: EOMI, other - Pinpoint pupils. ABSENT: conjunctival injection - . Respiratory exam: PRESENT: symmetrical, unlabored. ABSENT: tachypnea Pulses: PRESENT: normal dorsalis pedis pul - Left lower extremity, other - Normal posterior tibial artery pulse Vascular exam: PRESENT: normal capillary refill Neurological exam: PRESENT: oriented to person, oriented to place, oriented to time Psychiatric exam: PRESENT: agitated - My, anxious Adult Front & Back Image: 1 - Patient has gross sensory to light touch despite subjectively saying he has no sensation. Subjectively the patient has sensation intact without any paresthesias from the ankle above. Incision shows sutures are intact and wound is healing nicely with no evidence of drainage or dehiscence. Tender to palpation as expected postoperatively. Has full flexion extension of all 5 digits of his foot and has intact 5 out of 5 motor of the dorsiflexion and plantarflexion of the foot with normal inversion and eversion. Results Laboratory Results: 02/26/17 07:20 02/26/17 07:20 Impressions: Ankle X-Ray 02/24/17 19:30 IMPRESSION: Sclerosis seen in the region of a previously described calcaneal lucency is nonspecific, and may represent continued postprocedural healing. Subtle soft tissue stranding seen within Kager's fat pad may represent postprocedural scarring; however, acute inflammation may have a similar appearance. Recommend correlation for possible soft tissue inflammatory change. Chest X-Ray 02/24/17 21:33 IMPRESSION: NO SIGNIFICANT RADIOGRAPHIC FINDING IN THE CHEST. Guidance Fluoroscopy 02/26/17 00:00 IMPRESSION: SUCCESSFUL PLACEMENT OF A 5 FR DUAL LUMEN 34 CM PICC IN THE right basilic VEIN. Interventional Vascular Procedure 02/26/17 00:00 IMPRESSION: SUCCESSFUL PLACEMENT OF A 5 FR DUAL LUMEN 34 CM PICC IN THE right basilic VEIN. PICC Line Insertion 02/26/17 00:00 IMPRESSION: SUCCESSFUL PLACEMENT OF A 5 FR DUAL LUMEN 34 CM PICC IN THE right basilic VEIN. Status: Image reviewed by me - No change on the ankle x-ray with the postoperative x-rays taken in the office a few days ago. Antibiotic cement beads are same exact position. No new fractures appreciated. Assessment & Plan - Diagnosis (1) Intractable pain Is this a current diagnosis for this admission?: YesPlan: 41-year-old gentleman who is week and a half out from left calcaneal biopsy and curettage as well as placement of antibiotic cement beads. Patient currently on IV antibiotics which is changed from the p.o. antibiotics at the patient was given. Currently sed rate and CRP and white count are all within normal limits showing the antibiotics are addressing infection and there is no persistent worsening of symptoms except for the intractable pain and subjective paresthesias the patient is experiencing. Patient will like to be transferred for vitamin for her tertiary care and infectious disease consultation. I will discuss the case with his primary doctor Henry and to talk to infectious disease provider who they spoke to earlier. Pain management has been consulted for his intractable pain.
[2017-02-27] MEDS: OXYCODONE-ACETAMINOPHEN 5-325 MG TABLET PO PRN (16:20)
[2017-02-27] MEDS ORDERED: POLYETHYLENE GLYCOL 3350 POWDER 17 GM/1 PACKET PO PRN (18:35)
[2017-02-27] MEDS: NICOTINE 21 MG/24 HR PATCH.TD24 TD SCH (19:00)
[2017-02-27] MEDS ORDERED: MAGNESIUM CITRATE 296 ML BOTTLE PO ONE (19:00)
--- NOTE | 2017-02-27 20:07 | PDOC CONSULTATION ---
Consultation Consult Date: 02/27/17 Attending physician:: NIDIA NANCE Consult reason:: antibiotic management History of Present Illness Admission Date/PCP: 02/26/17 00:45 History of Present Illness: Patient is a 41-year-old male who underwent resection of calcaneal fragment at the end of last year with subsequent infection that was polymicrobial requiring washout 2. Patient and his most recent cultures grew Pseudomonas and staph aureus. Patient was on oral Cipro and Bactrim. Patient was admitted with reported fever at home of 101.6. During his hospitalization, patient has had no recorded fevers, leukocytosis, elevated sed rate, elevated CRP, left shift, or other objective indicators of infection with the exception of reported pain. Patient does note constipation 3 days and decreased appetite. Past Medical History Cardiac Medical History: Denies: Coronary Artery Disease, Myocardial Infarction, Hypertension Pulmonary Medical History: Denies: Asthma, Bronchitis, Chronic Obstructive Pulmonary Disease (COPD), Pneumonia Neurological Medical History: Denies: Seizures Musculoskeltal Medical History: Reports: Other - osteomylitis Denies: Arthritis Hematology: Denies: Anemia Past Surgical History Past Surgical History: Reports: Orthopedic Surgery Social History Lives with: Spouse/Significant other Smoking Status: Current Every Day Smoker Cigarettes Packs Per Day: 0.5 Number of Years Smokin Last Time Smoked: 02/24/2017 Frequency of Alcohol Use: None Hx Recreational Drug Use: No Drugs: None Hx Prescription Drug Abuse: No - Advance Directive Resuscitation Status: Do Not Resuscitate Family History Family History: DM Parental Family History Reviewed: Yes Children Family History Reviewed: Yes Sibling(s) Family History Reviewed.: Yes Medication/Allergy Home Medications: Hydromorphone HCl [Dilaudid] 2 mg PO Q6 02/25/17 Meloxicam [Mobic 7.5 mg Tablet] 7.5 mg PO BID 02/25/17 Oxycodone HCl [Oxycodone HCl 10 MG Tablet] 10 mg PO Q12HP PRN 02/25/17 Oxycodone HCl/Acetaminophen [Oxycodon-Acetaminophen 7.5-325] 1 tab PO Q6HP PRN 02/25/17 Allergies/Adverse Reactions: No Known Allergies Allergy (Verified 02/24/17 19:15) Review of Systems Constitutional: PRESENT: chills, fever(s), weight loss. ABSENT: headache(s), weight gain Eyes: ABSENT: visual disturbances Ears: ABSENT: hearing changes Cardiovascular: ABSENT: chest pain, dyspnea on exertion, edema, orthropnea, palpitations Respiratory: ABSENT: cough, hemoptysis Gastrointestinal: PRESENT: constipation, nausea. ABSENT: abdominal pain, diarrhea, hematemesis, hematochezia, vomiting Genitourinary: ABSENT: dysuria, hematuria Musculoskeletal: ABSENT: joint swelling Integumentary: ABSENT: rash, wounds Neurological: ABSENT: abnormal gait, abnormal speech, confusion, dizziness, focal weakness, syncope Psychiatric: ABSENT: anxiety, depression, homidical ideation, suicidal ideation Endocrine: ABSENT: cold intolerance, heat intolerance, polydipsia, polyuria Hematologic/Lymphatic: ABSENT: easy bleeding, easy bruising Physical Exam Vital Signs: Temp Pulse Resp BP Pulse Ox 98.3 F 59 L 16 129/67 H 92 02/27/17 11:44 02/27/17 15:21 02/27/17 15:21 02/27/17 15:21 02/27/17 15:21 Intake & Output 02/26/17 02/27/17 02/28/17 06:59 06:59 06:59 Intake Total 710 1500 1170 Output Total 450 600 300 Balance 260 900 870 Weight 74.9 kg 73.2 kg General appearance: PRESENT: no acute distress, well-developed, well-nourished Head exam: PRESENT: atraumatic, normocephalic Eye exam: PRESENT: conjunctiva pink, EOMI, PERRLA. ABSENT: scleral icterus Ear exam: PRESENT: normal external ear exam Mouth exam: PRESENT: moist, tongue midline Neck exam: ABSENT: JVD, lymphadenopathy, thyromegaly, tracheal deviation Respiratory exam: PRESENT: clear to auscultation dickson. ABSENT: rales, rhonchi, wheezes Cardiovascular exam: PRESENT: RRR. ABSENT: diastolic murmur, rubs, systolic murmur Pulses: PRESENT: normal dorsalis pedis pul Vascular exam: PRESENT: normal capillary refill GI/Abdominal exam: PRESENT: hypoactive bowel sounds, soft. ABSENT: distended, firm, guarding, mass, Ayala's sign, organolmegaly, rebound, rigid, tenderness Rectal exam: PRESENT: deferred Extremities exam: PRESENT: full ROM, other - Right great toe. ABSENT: calf tenderness, clubbing, pedal edema Neurological exam: PRESENT: alert, awake, oriented to person, oriented to place , oriented to time, oriented to situation, CN II-XII grossly intact. ABSENT: motor sensory deficit Psychiatric exam: PRESENT: appropriate affect, normal mood. ABSENT: homicidal ideation, suicidal ideation Skin exam: PRESENT: dry, warm, other - left lateral calcaneal scar healing well without. ABSENT: cyanosis, rash Results Laboratory Results: 02/26/17 07:20 02/26/17 07:20 Impressions: Ankle X-Ray 02/24/17 19:30 IMPRESSION: Sclerosis seen in the region of a previously described calcaneal lucency is nonspecific, and may represent continued postprocedural healing. Subtle soft tissue stranding seen within Kager's fat pad may represent postprocedural scarring; however, acute inflammation may have a similar appearance. Recommend correlation for possible soft tissue inflammatory change. Chest X-Ray 02/24/17 21:33 IMPRESSION: NO SIGNIFICANT RADIOGRAPHIC FINDING IN THE CHEST. Guidance Fluoroscopy 02/26/17 00:00 IMPRESSION: SUCCESSFUL PLACEMENT OF A 5 FR DUAL LUMEN 34 CM PICC IN THE right basilic VEIN. Interventional Vascular Procedure 02/26/17 00:00 IMPRESSION: SUCCESSFUL PLACEMENT OF A 5 FR DUAL LUMEN 34 CM PICC IN THE right basilic VEIN. PICC Line Insertion 02/26/17 00:00 IMPRESSION: SUCCESSFUL PLACEMENT OF A 5 FR DUAL LUMEN 34 CM PICC IN THE right basilic VEIN. Assessment & Plan - Diagnosis (1) Constipation due to opioid therapy Is this a current diagnosis for this admission?: YesPlan: We will give patient a bottle of magnesium citrate and add to his Colace, senna and MiraLAX daily. (2) Intractable pain Is this a current diagnosis for this admission?: YesPlan: Defer to primary team. Stop every hour Dilaudid. Add Lyrica. Recommend pain management as an outpatient. Patient's reported pain appears to be out of proportion to my physical examination, correlate clinically. (3) Post op infection Qualifiers: Encounter type: subsequent encounter Qualified Code(s): T81.4XXD - Infection following a procedure, subsequent encounter Is this a current diagnosis for this admission?: YesPlan: Indications for antibiotic therapy based on previous cultures included 3 months of oral Keflex 500 mg p.o. 4 times daily and Cipro 750 mg p.o. every 12. Initially, patient may have 6 weeks of Zosyn at 4.5 g IV q6h with interval follow-up. Recommend patient keep outpatient infectious disease consultation. These recommendations were discussed with Dr. Wheeler of infectious disease at [facility]. - Time Time Spent: 50 to 70 Minutes Smoking Cessation Education: 3 to 10 minutes Medications reviewed and adjusted accordingly: Yes Anticipated discharge: Home Within: within 24 hours - Plan Summary Plan Summary: Medicine team signing off. Have discussed this with the primary physician.
[2017-02-27] MEDS: SENNOSIDES/DOCUSATE 8.6-50 MG 1 EACH TABLET PO SCH (21:44)
[2017-02-27] MEDS: ZOLPIDEM TARTRATE 5 MG TABLET PO SCH (21:44)
[2017-02-27] MEDS: PREGABALIN 25 MG CAPSULE PO SCH (21:44)
[2017-02-27] MEDS: RIVAROXABAN 10 MG TABLET PO SCH (21:44)
[2017-02-27] MEDS: PIPERACILLIN SODIUM/TAZOBACTAM 4.5 GM in NORMAL SALINE 100 ML IV SCH (23:53)
[2017-02-28] MEDS: PREGABALIN 25 MG CAPSULE PO SCH ×3 (05:43→22:17)
[2017-02-28] MEDS: PIPERACILLIN SODIUM/TAZOBACTAM 4.5 GM in NORMAL SALINE 100 ML IV SCH ×4 (05:43→23:59)
[2017-02-28] MEDS: OXYCODONE HCL SR 10 MG TABLET PO SCH ×2 (09:36→22:17)
[2017-02-28] MEDS: FAMOTIDINE 20 MG TABLET PO SCH ×2 (09:37→22:17)
[2017-02-28] MEDS: DOCUSATE SODIUM 100 MG CAPSULE PO SCH ×2 (09:37→17:34)
[2017-02-28] MEDS: NORMAL SALINE 10 ML SDV (SCHEDULED) IV SCH ×2 (09:37→22:18)
[2017-02-28] MEDS ORDERED: LACTOBACILLUS ACIDOPHILUS 250 MG TAB PO SCH (10:00)
[2017-02-28] MEDS: OXYCODONE-ACETAMINOPHEN 5-325 MG TABLET PO PRN ×3 (10:17→23:59)
--- NOTE | 2017-02-28 13:03 | PDOC PROGRESS REPORT ---
Subjective Progress Note for:: 02/28/17 Subjective:: Patient had no fevers last night no other issues. Pain is adequately controlled despite cutting back on Dilaudid. He thinks the Lyrica has helped since started yesterday. Patient ready to go home. Physical Exam Vital Signs: Temp Pulse Resp BP Pulse Ox 36.7 C 59 L 14 109/70 95 02/28/17 07:28 02/28/17 07:28 02/28/17 07:28 02/28/17 07:28 02/28/17 07:28 Intake & Output 02/27/17 02/28/17 03/01/17 06:59 06:59 06:59 Intake Total 1500 1970 Output Total 600 300 Balance 900 1670 Weight 73.2 kg 74.3 kg General appearance: PRESENT: no acute distress Eye exam: PRESENT: EOMI, other. ABSENT: conjunctival injection, nystagmus Respiratory exam: PRESENT: symmetrical, unlabored. ABSENT: tachypnea Adult Front & Back Image: 1 - Incision is dry clean and intact except for one area where there is minimal serous drainage. Minimal erythema. Sutures are intact. There drainage does have a missing suture. No purulence. Patient has increased sensation to light touch on the lateral aspect of the heel. Still has normal range of motion of the ankle and toes with 5 out of 5 motor. Good pedal pulses and capillary refill. Results Laboratory Results: 02/26/17 07:20 02/26/17 07:20 Impressions: Ankle X-Ray 02/24/17 19:30 IMPRESSION: Sclerosis seen in the region of a previously described calcaneal lucency is nonspecific, and may represent continued postprocedural healing. Subtle soft tissue stranding seen within Kager's fat pad may represent postprocedural scarring; however, acute inflammation may have a similar appearance. Recommend correlation for possible soft tissue inflammatory change. Chest X-Ray 02/24/17 21:33 IMPRESSION: NO SIGNIFICANT RADIOGRAPHIC FINDING IN THE CHEST. Guidance Fluoroscopy 02/26/17 00:00 IMPRESSION: SUCCESSFUL PLACEMENT OF A 5 FR DUAL LUMEN 34 CM PICC IN THE right basilic VEIN. Interventional Vascular Procedure 02/26/17 00:00 IMPRESSION: SUCCESSFUL PLACEMENT OF A 5 FR DUAL LUMEN 34 CM PICC IN THE right basilic VEIN. PICC Line Insertion 02/26/17 00:00 IMPRESSION: SUCCESSFUL PLACEMENT OF A 5 FR DUAL LUMEN 34 CM PICC IN THE right basilic VEIN. Assessment & Plan - Diagnosis (1) Intractable pain Is this a current diagnosis for this admission?: Yes - Plan Summary Plan Summary: 41-year-old gentleman with left heel pain and treatment of his left calcaneal osteomyelitis with labs showing proper antibiotic treatment. Appreciate Dr. Boston input and coordination with by infectious disease. Patient will be discharged tomorrow after sitting up IV antibiotics and home health. I will set him up for an outpatient visit with infectious disease, second opinion with Dr. Linares and attempt to consult pain management as an outpatient. Discussed the plan with the patient and and they seem to be okay with the plan.
[2017-02-28] MEDS: NICOTINE 21 MG/24 HR PATCH.TD24 TD SCH (18:20)
[2017-02-28] MEDS: RIVAROXABAN 10 MG TABLET PO SCH (22:17)
[2017-02-28] MEDS: SENNOSIDES/DOCUSATE 8.6-50 MG 1 EACH TABLET PO SCH (22:18)
[2017-02-28] MEDS: ZOLPIDEM TARTRATE 5 MG TABLET PO SCH (22:18)
[2017-03-01] MEDS: HYDROMORPHONE HCL INJ/PF 2 MG/ML AMPULE IV PRN (02:20)
[2017-03-01] MEDS: PREGABALIN 25 MG CAPSULE PO SCH (06:35)
[2017-03-01] MEDS: PIPERACILLIN SODIUM/TAZOBACTAM 4.5 GM in NORMAL SALINE 100 ML IV SCH (06:35)
[2017-03-01 07:14] LABS: ABSOLUTE EOSINOPHILS # (AUTO) 0.2 10^3/uL (0.0-0.6); ABSOLUTE LYMPHOCYTES (AUTO) 1.3 10^3/uL (0.5-4.7); ABSOLUTE MONOCYTES (AUTO) 0.7 10^3/uL (0.1-1.4); ABSOLUTE NEUT (AUTO) 3.1 10^3/uL (1.7-8.2); BASOPHILS % (AUTO) 0.7 % (0-2); EOSINOPHILS % (AUTO) 3.6 % (0-6); HEMATOCRIT 42.7 % (37.9-51.0); HEMOGLOBIN 14.4 g/dL (13.5-17.0); HGB HCT DIFFERENCE 0.5; MEAN CORPUSCULAR HEMOGLOBIN 30.5 pg (27.0-33.4); MEAN CORPUSCULAR HGB CONC 33.8 g/dL (32.0-36.0); MEAN CORPUSCULAR VOLUME 90 fl (80-97); MONOCYTES % (AUTO) 12.3 % (3-13); RED BLOOD COUNT 4.72 10^6/uL (4.35-5.55); RED CELL DISTRIBUTION WIDTH 13.3 % (11.5-14.0); SEGMENTED NEUTROPHILS % (AUTO) 58.4 % (42-78); WHITE BLOOD COUNT 5.4 10^3/uL (4.0-10.5)
[2017-03-01] MEDS: KETOROLAC TROMETHAMINE INJ/PF 30 MG/1 ML SDV IV PRN (08:04)
[2017-03-01 09:15] VITALS: BP 129/78
--- NOTE | 2017-04-18 10:51 | PDOC PROGRESS REPORT ---
Subjective Progress Note for:: 02/27/17 Subjective:: Patient states he does not a lot is starting to help with his pain although he still states he is 3/5 in the pain scale. Denies any fevers or night or any other acute issues. Still complains of no superficial pain but only of deep global foot and ankle pain. Only able to ambulate toe-touch, will not put full weight on it due to pain. Physical Exam Vital Signs: Temp Pulse Resp BP Pulse Ox 36.8 C 59 L 16 129/67 H 92 02/27/17 11:44 02/27/17 15:21 02/27/17 15:21 02/27/17 15:21 02/27/17 15:21 Intake & Output 02/26/17 02/27/17 02/28/17 06:59 06:59 06:59 Intake Total 710 1500 130 Output Total 450 600 Balance 260 900 130 Weight 74.9 kg 73.2 kg General appearance: PRESENT: no acute distress Eye exam: PRESENT: EOMI, other - Symmetric pinpoint pupils. ABSENT: conjunctival injection Respiratory exam: PRESENT: symmetrical, unlabored Pulses: PRESENT: normal dorsalis pedis pul - And normal posterior tibial pulse Vascular exam: PRESENT: normal capillary refill Adult Front & Back Image: 1 - Incision is dry clean and intact. Sutures are intact. Erythema that I think is due to postoperative changes but no cellulitis or purulence noted. Not too tender to touch with full motor 5 out of 5 distally. Gross sensation is intact despite patient stating having change in sensation compared to the remaining leg. Results Laboratory Results: 02/26/17 07:20 02/26/17 07:20 Impressions: Ankle X-Ray 02/24/17 19:30 IMPRESSION: Sclerosis seen in the region of a previously described calcaneal lucency is nonspecific, and may represent continued postprocedural healing. Subtle soft tissue stranding seen within Kager's fat pad may represent postprocedural scarring; however, acute inflammation may have a similar appearance. Recommend correlation for possible soft tissue inflammatory change. Chest X-Ray 02/24/17 21:33 IMPRESSION: NO SIGNIFICANT RADIOGRAPHIC FINDING IN THE CHEST. Guidance Fluoroscopy 02/26/17 00:00 IMPRESSION: SUCCESSFUL PLACEMENT OF A 5 FR DUAL LUMEN 34 CM PICC IN THE right basilic VEIN. Interventional Vascular Procedure 02/26/17 00:00 IMPRESSION: SUCCESSFUL PLACEMENT OF A 5 FR DUAL LUMEN 34 CM PICC IN THE right basilic VEIN. PICC Line Insertion 02/26/17 00:00 IMPRESSION: SUCCESSFUL PLACEMENT OF A 5 FR DUAL LUMEN 34 CM PICC IN THE right basilic VEIN. Status: Image reviewed by me Assessment & Plan - Diagnosis (1) Intractable pain Is this a current diagnosis for this admission?: Yes - Plan Summary Plan Summary: 41-year-old gentleman being treated for left calcaneal osteomyelitis. Patient currently on IV antibiotics. PICC line looks dry clean and intact. Sed rate, CRP, white count all within normal limits. Spoke to [facility] who at the moment is a full capacity. I did discuss the case briefly with the orthopedic surgeon on-call Dr. Linares who states he would be happy to see the patient has a second opinion but as an outpatient setting versus hospital transfer. We will consult hospitalist for recommendation of antibiotic prior to discharge. Also will attempt to contact infectious disease in [place] to set up appointment postop. Unable to get pain management to evaluate the patient's intractable pain due to patient's insurance. Currently will continue current pain regimen due to the fact the patient is already stating some relief.
--- NOTE | 2017-04-18 10:52 | PDOC DISCHARGE SUMMARY ---
General - Admit/Disc Date/PCP Admission Date/Primary Care Provider: 02/26/17 00:45 Discharge Date: 02/28/17 - Discharge Diagnosis (1) Intractable pain Is this a current diagnosis for this admission?: Yes - Additional Information Resuscitation Status: Do Not Resuscitate Discharge Activity: Activity As Tolerated Home Medications: Biotin 1 tab PO DAILY 04/02/17 Oxycodone HCl [Roxicodone] 20 mg PO Q4HP PRN 04/02/17 Pregabalin [Lyrica] 1 cap PO Q12 04/02/17 Bupropion HCl [Wellbutrin Sr 150 mg Tablet] 1 tab PO Q12 04/06/17 Polyethylene Glycol 3350 [Miralax Powder 17 gm/Packet] 1 packet PO DAILY History of Present Illness History of Present Illness: ORIANA VALENCIA is a 41 year old male admitted on 02/26/17 for intractable pain of left calcaneus status post I&D of left calcaneus osteomyelitis and placement of antibiotic beads. Patient stated having fever 101.6 but on admission and hospital stay he had normal lab value and temperature. Patient admitted for pain control. Hospital Course Hospital Course: Patient during hospital stay required initially around the clock dilaudid for pain control. Pain management regional office coordinator doesnt take his insurance therefore I consulted Dr. Boston for antibiotic treatment and pain control.Patient dmitted under my partner who ordered PICC Line and IV antibiotics. Patient with normal white count , afebrile showing proper treatment.After discussing with [facility], Patient was placed back on oral Abx and placed on LYrica. Patient was discharged on 02/28/17. Will follow up in 1-2 weeks with me. Will have patient see infectious disease in [facility]. Physical Exam Vital Signs: Temp Pulse Resp BP Pulse Ox 36.5 C 76 18 129/78 H 94 03/01/17 09:10 03/01/17 09:10 03/01/17 09:10 03/01/17 09:10 03/01/17 09:10 General appearance: PRESENT: no acute distress Eye exam: PRESENT: EOMI, other - pin point symmetric pupils. ABSENT: conjunctiva pink, nystagmus Ear exam: ABSENT: bleeding, drainage Neck exam: ABSENT: lymphadenopathy, tenderness Respiratory exam: PRESENT: symmetrical, unlabored. ABSENT: accessory muscle use , chest wall tenderness, tachypnea Pulses: PRESENT: normal radial pulses, +2 pedal pulses bilateral Vascular exam: PRESENT: normal capillary refill GI/Abdominal exam: PRESENT: soft. ABSENT: distended, guarding, organolmegaly, tenderness Adult Front & Back Image: 1 - incision dry clean and intact, minimal to no erythema. ful range of motion but painful especially with weightbearing and very tender to palpation.. paresthesia over lateral aspect heel. subjective paresthesia entire foot from ankle down. good capillary refill. Results Laboratory Results: 03/01/17 06:40 02/26/17 07:20 Impressions: Ankle X-Ray 02/24/17 19:30 IMPRESSION: Sclerosis seen in the region of a previously described calcaneal lucency is nonspecific, and may represent continued postprocedural healing. Subtle soft tissue stranding seen within Kager's fat pad may represent postprocedural scarring; however, acute inflammation may have a similar appearance. Recommend correlation for possible soft tissue inflammatory change. Chest X-Ray 02/24/17 21:33 IMPRESSION: NO SIGNIFICANT RADIOGRAPHIC FINDING IN THE CHEST. Guidance Fluoroscopy 02/26/17 00:00 IMPRESSION: SUCCESSFUL PLACEMENT OF A 5 FR DUAL LUMEN 34 CM PICC IN THE right basilic VEIN. Interventional Vascular Procedure 02/26/17 00:00 IMPRESSION: SUCCESSFUL PLACEMENT OF A 5 FR DUAL LUMEN 34 CM PICC IN THE right basilic VEIN. PICC Line Insertion 02/26/17 00:00 IMPRESSION: SUCCESSFUL PLACEMENT OF A 5 FR DUAL LUMEN 34 CM PICC IN THE right basilic VEIN. Status: Image reviewed by me Plan Discharge Plan: Follow up in 1-2 weeks with [facility] Continue oral abx provided him. Follow up in 2 weeks with me. D/C on Lyrica and percocet. will attmept to find pain management that will take his insurance.
== END 2017-03-01 09:41 | disposition home health service (06) | DRG 556 ==
LOC: ER 18:20 → UNDOADMOB 02-25 00:45 → EH 02-25 00:45 → UNDOADMOB 02-25 01:03 → EH 02-25 02:45 → 4S 02-25 02:45 → OBSVTOIN 02-26 00:45 → 4S 02-26 15:18
PROVIDERS: ADMIT Orthopaedic Surgery; ATTEND Orthopaedic Surgery
PROC: 02HV33Z Insertion of Infusion Device into Superior Vena Cava, Percutaneous Approach (ICD-10-PCS; principal; 2017-02-26)
PROC: B5181ZA Fluoroscopy of Superior Vena Cava using Low Osmolar Contrast, Guidance (ICD-10-PCS; 2017-02-26)
PROC: B548ZZA Ultrasonography of Superior Vena Cava, Guidance (ICD-10-PCS; 2017-02-26)
DX: M25.572 Pain in left ankle and joints of left foot (principal); T81.4XXD Infection following a procedure, subsequent encounter; K59.03 Drug induced constipation; T40.2X5A Adverse effect of other opioids, initial encounter; Z79.899 Other long term (current) drug therapy; Z86.14 Personal history of Methicillin resistant Staphylococcus aureus infection; F17.210 Nicotine dependence, cigarettes, uncomplicated
CPT/HCPCS: 36415; 36569; 71020; 76937; 77001; 80048; 80053; 81001; 82803; 82962; 83036; 83605; 85025; 85027; 85610; 85652; 86140; 87040; 87086; 93005; 93010; 96365; 96375; 96376; 99285; G0378; J0743; J1170; J1200; J1642; J1885; J2405; J2543; J3370; J3490

== ENCOUNTER 2017-03-04 01:42 | Emergency (ER) | payer MEDICAID ==
[2017-03-04 02:00] VITALS: BP 97/82
[2017-03-04] MEDS ORDERED: LORAZEPAM INJ 2 MG/1 ML VIAL IV ONE (02:44)
[2017-03-04] MEDS ORDERED: DIPHENHYDRAMINE HCL 50 MG/ML VIAL IV ONE (02:44)
--- NOTE | 2017-03-04 02:48 | ER Document Report ---
ED General - General Chief Complaint: Leg Pain Stated Complaint: LEG PAIN Time Seen by Provider: 03/04/17 02:32 Notes: Patient is a 41-year-old male who presents with complaint of feeling as if his muscles are burning and he cannot keep them still. He says he hurts all over. He does have history of osteomyelitis. He is recently discharged from the hospital. He was admitted by Dr. Clemons. He had washings performed of the heel. He is on antibiotics. He received Zosyn through a PICC line. This been on the Zosyn since Sunday. No other new medications. He says tonight he just refills of his muscles were burning and he has aching and pain throughout his muscles and feels as if they are jumping and he cannot keep them still. He denies any nausea medications. He denies any psychiatric medications. He is on pain medication and has been taking pain meds. TRAVEL OUTSIDE OF THE [place] IN LAST 30 DAYS: No - Related Data Allergies/Adverse Reactions: No Known Allergies Allergy (Verified 02/24/17 19:15) Past Medical History - Social History Smoking Status: Current Every Day Smoker Frequency of alcohol use: None Drug Abuse: None Family History: DM Patient has suicidal ideation: No Patient has homicidal ideation: No - Past Medical History Cardiac Medical History: Denies: Hx Coronary Artery Disease, Hx Heart Attack, Hx Hypertension Pulmonary Medical History: Denies: Hx Asthma, Hx Bronchitis, Hx COPD, Hx Pneumonia Neurological Medical History: Denies: Hx Cerebrovascular Accident, Hx Seizures Renal/ Medical History: Denies: Hx Peritoneal Dialysis Musculoskeltal Medical History: Denies Hx Arthritis Past Surgical History: Reports: Hx Orthopedic Surgery - osteomylitits - Immunizations Hx Diphtheria, Pertussis, Tetanus Vaccination: Yes Review of Systems - Review of Systems Notes: My Normal Review Basic REVIEW OF SYSTEMS: CONSTITUTIONAL : Denies fever, chills, or sweats. Denies recent illness. EENT: Denies eye, ear, throat, or mouth pain or symptoms. Denies nasal or sinus congestion. CARDIOVASCULAR: Denies chest pain. RESPIRATORY: Denies cough, cold, or chest congestion. Denies shortness of breath, difficulty breathing, or wheezing. GASTROINTESTINAL: Denies abdominal pain. Denies nausea, vomiting, or diarrhea. Denies constipation. Last BM: MUSCULOSKELETAL: Muscle aches SKIN: Denies rash or skin lesions. HEMATOLOGIC : Denies easy bruising or bleeding. LYMPHATIC: Denies swollen, enlarged glands. NEUROLOGICAL: Denies altered mental status or loss of consciousness. Denies headache. Denies weakness or paralysis or loss of use of either side. Denies problems with gait or speech. Denies sensory or motor loss. ALL OTHER SYSTEMS REVIEWED AND NEGATIVE. Physical Exam - Vital signs Vitals: Temp Pulse Resp BP Pulse Ox 97.6 F 62 22 H 97/82 L 96 03/04/17 01:53 03/04/17 01:53 03/04/17 01:53 03/04/17 01:53 03/04/17 01:53 - Notes Notes: General Appearance: Well nourished, alert, cooperative, no acute distress, moderate obvious discomfort. Patient will start rapidly spinning his arms and hands together saying that he cannot stay still and that his legs and arms hurt. Vitals: reviewed, See vital signs table. Eyes: PERRL, EOMI, Conjuctiva clear Mouth: No decreasd moisture Lungs: No wheezing, No rales, No rhonci, No accessory muscle use, good air exchange bilaterally. Heart: Normal rate, Regular rythm, No murmur, no rub Abdomen: Normal BS, soft, No rigidity, No abdominal tenderness, No guarding, no rebound, no abdominal masses, no organomegaly Extremities: Patient has sutures on the back of the heel. There is no redness or swelling around this area. No signs of spreading infection., good pulses in all extremities, no swelling or tenderness in the extremities, no edema. Skin: warm, dry, appropriate color, no rash Neuro: speech clear, oriented x 3, normal affect, responds appropriately to questions. 2 through 12 are intact. Patient is able to move all extremities on his own without any difficulty. Course - Re-evaluation Re-evalutation: 03/05/17 08:22 After much the patient and the it appears that the patient's symptoms started after starting Zosyn and that he stopped being able to [id number] is only had a few hours of sleep the last 4 nights. He now tells me he just feels so exhausted that is causing to become very agitated and actively he is. I suspect this is the root of why he is very agitated and cannot stay still. He is on no medications that should be causing dystonic reaction. His symptoms and movements are really not consistent with that of a dystonic reaction. Zosyn an cause severe insomnia in some patients. I did come speak with Dr. london, orthopedist on-call, and informed them my concerns that we need to stop the Zosyn. He said as appropriate and he would have the office call the patient Sunday to start a new antibiotic after reviewing the cultures. Patient has no fevers. Has no leukocytosis. Examination of the wound shows a well healing wound with no surrounding erythema. On Ambien while in the hospital and says it did help him sleep some. Patient encouraged to return to ER if has worsening symptoms. Patient agrees with plan and will be discharged home. Dictation of this chart was performed using voice recognition software; therefore, there may be some unintended grammatical errors. - Vital Signs Vital signs: Temp Pulse Resp BP Pulse Ox 97.6 F 62 22 H 97/82 L 96 03/04/17 01:53 03/04/17 01:53 03/04/17 01:53 03/04/17 01:53 03/04/17 01:53 - Laboratory Result Diagrams: 03/04/17 03:11 03/04/17 04:04 Laboratory results interpreted by me: 03/04/17 04:04 Chloride 111 H Discharge - Discharge Clinical Impression: Agitation Insomnia Qualifiers: Insomnia type: unspecified Qualified Code(s): G47.00 - Insomnia, unspecified Condition: Good Disposition: HOME, SELF-CARE Additional Instructions: Please call Dr. Venegas's office Sunday. They will arrange for a new antibiotic with home health to be started. Do not take any further dosages of Zosyn. I suspect the Zosyn is leading to your insomnia. Please continue to take your pain medications as prescribed. Do not drive after taking the Ambien. Please return to the ER immediately if you have worsening agitation, fevers, or feel unwell. Prescriptions: Zolpidem Tartrate [Ambien] 10 mg PO HSP PRN #20 tablet PRN Reason:
[2017-03-04 03:21] LABS: ABSOLUTE BASOPHILS # (AUTO) 0.1 10^3/uL (0.0-0.2); ABSOLUTE EOSINOPHILS # (AUTO) 0.2 10^3/uL (0.0-0.6); ABSOLUTE LYMPHOCYTES (AUTO) 2.5 10^3/uL (0.5-4.7); ABSOLUTE MONOCYTES (AUTO) 0.7 10^3/uL (0.1-1.4); ABSOLUTE NEUT (AUTO) 5.1 10^3/uL (1.7-8.2); BASOPHILS % (AUTO) 0.7 % (0-2); EOSINOPHILS % (AUTO) 1.9 % (0-6); HEMATOCRIT 43.3 % (37.9-51.0); HEMOGLOBIN 14.6 g/dL (13.5-17.0); HGB HCT DIFFERENCE 0.5; LYMPHOCYTES % (AUTO) 29.2 % (13-45); MEAN CORPUSCULAR HEMOGLOBIN 30.9 pg (27.0-33.4); MEAN CORPUSCULAR HGB CONC 33.7 g/dL (32.0-36.0); MEAN CORPUSCULAR VOLUME 92 fl (80-97); MONOCYTES % (AUTO) 7.7 % (3-13); RED BLOOD COUNT 4.71 10^6/uL (4.35-5.55); RED CELL DISTRIBUTION WIDTH 13.2 % (11.5-14.0); SEGMENTED NEUTROPHILS % (AUTO) 60.5 % (42-78); WHITE BLOOD COUNT 8.5 10^3/uL (4.0-10.5)
[2017-03-04] MEDS ORDERED: DIAZEPAM INJ 10 MG/2 ML DISP.SYRIN IV ONE (03:25)
[2017-03-04] MEDS ORDERED: ROPINIROLE HCL 0.25 MG TABLET PO ONE (04:03)
[2017-03-04] MEDS ORDERED: HALOPERIDOL LACTATE INJ 5 MG/1 ML VIAL IM ONE (04:32)
[2017-03-04] MEDS ORDERED: ROPINIROLE HCL 0.25 MG TABLET ONE (04:38)
[2017-03-04 04:39] LABS: ALBUMIN 3.7 g/dL (3.5-5.0); ANION GAP 11 (5-19); BLOOD UREA NITROGEN 13 mg/dL (7-20); CALCIUM 9.3 mg/dL (8.4-10.2); CARBON DIOXIDE 23 mmol/L (22-30); CHLORIDE 111 mmol/L (98-107); CREATININE RESULT 0.93 mg/dL (0.52-1.25); GLUCOSE 84 mg/dL (75-110); POTASSIUM 4.1 mmol/L (3.6-5.0); SODIUM 144.5 mmol/L (137-145); TOTAL PROTEIN 6.4 g/dL (6.3-8.2)
[2017-03-04 04:40] LABS: ALANINE AMINOTRANSFERASE 49 U/L (21-72); ALKALINE PHOSPHATASE 56 U/L (38-126); ASPARTATE AMINO TRANSFERASE 40 U/L (17-59); BILIRUBIN,DIRECT 0.3 mg/dL (0.0-0.4); BILIRUBIN,TOTAL 0.6 mg/dL (0.2-1.3); MAGNESIUM 1.8 mg/dL (1.6-2.3)
== END 2017-03-04 06:37 | disposition home or self-care (01) ==
LOC: ER 01:42
DX: G47.00 Insomnia, unspecified (principal); R45.1 Restlessness and agitation; M86.9 Osteomyelitis, unspecified; F17.200 Nicotine dependence, unspecified, uncomplicated
CPT/HCPCS: 99283; 96372; 96374; 96375; 36415; 83735; 85025; 80053; J3360; J1200; J1630; J2060

== ENCOUNTER 2017-03-12 20:04 | Emergency (ER) | payer MEDICAID ==
[2017-03-12 20:31] VITALS: BP 126/78
--- NOTE | 2017-03-12 21:43 | ER Document Report ---
ED Medical Screen (RME) - General Chief Complaint: Vomiting Stated Complaint: VOMITTING Time Seen by Provider: 03/12/17 21:39 Mode of Arrival: Ambulatory Information source: Patient Notes: Patient presents complaining of increased left foot pain that he attributes to his chronic osteomyelitis. Patient states that he has been told in the past that they are considering amputating the foot because of his continued infection as well as unmanageable pain. Patient has complaint of nausea, vomiting and diarrhea as well today. Patient complains of generalized tremors. TRAVEL OUTSIDE OF THE [place] IN LAST 30 DAYS: No - Related Data Allergies/Adverse Reactions: No Known Allergies Allergy (Verified 02/24/17 19:15) Past Medical History - Past Medical History Cardiac Medical History: Denies: Hx Coronary Artery Disease, Hx Heart Attack, Hx Hypertension Pulmonary Medical History: Denies: Hx Asthma, Hx Bronchitis, Hx COPD, Hx Pneumonia Neurological Medical History: Denies: Hx Cerebrovascular Accident, Hx Seizures Renal/ Medical History: Denies: Hx Peritoneal Dialysis Musculoskeltal Medical History: Denies Hx Arthritis Past Surgical History: Reports: Hx Orthopedic Surgery - osteomylitits - Immunizations Hx Diphtheria, Pertussis, Tetanus Vaccination: Yes Physical Exam - Vital signs Vitals: Temp Pulse Resp BP Pulse Ox 98.5 F 76 18 126/78 H 97 03/12/17 20:29 03/12/17 20:29 03/12/17 20:29 03/12/17 20:29 03/12/17 20:29 - Extremities General lower extremity: Tender - Left posterior foot, calcaneus tenderness, mild erythema, In tenderness. Course - Re-evaluation Re-evalutation: 03/12/17 21:41 Patient states that he does not want to wait her any longer tonight. He would rather go see his orthopedic surgeon tomorrow. patient advised that we would be happy to see patient if he would like to stay and be evaluated or if he changes his mind and wants to return to worsened left foot pain. Patient ambulatory out of the apartment with his spouse. - Vital Signs Vital signs: Temp Pulse Resp BP Pulse Ox 98.5 F 76 18 126/78 H 97 03/12/17 20:29 03/12/17 20:29 03/12/17 20:29 03/12/17 20:29 03/12/17 20:29 Doctor's Discharge - Discharge Clinical Impression: Left foot pain Disposition: AGAINST MEDICAL ADVICE
== END 2017-03-12 21:40 | disposition left against medical advice (07) ==
LOC: ER 20:04
DX: M79.672 Pain in left foot (principal); R11.10 Vomiting, unspecified; M86.672 Other chronic osteomyelitis, left ankle and foot; R11.2 Nausea with vomiting, unspecified; R19.7 Diarrhea, unspecified; R25.1 Tremor, unspecified
CPT/HCPCS: 99283

== ENCOUNTER 2017-04-05 12:33 | Inpatient (IN) | payer MEDICAID ==
[2017-04-02 10:59] LABS: APPEARANCE,URINE SLIGHTLY-CLOUDY; BILIRUBIN,URINE NEGATIVE (NEGATIVE); GLUCOSE, URINE NEGATIVE (NEGATIVE); KETONES,URINE NEGATIVE (NEGATIVE); LEUKOCYTE ESTERASE,URINE NEGATIVE (NEGATIVE); NITRITE,URINE NEGATIVE (NEGATIVE); PROTEIN,URINE NEGATIVE (NEGATIVE); UROBILINOGEN,URINE NEGATIVE mg/dL (<2.0)
[2017-04-02 11:02] LABS: ABSOLUTE EOSINOPHILS # (AUTO) 0.1 10^3/uL (0.0-0.6); ABSOLUTE LYMPHOCYTES (AUTO) 1.8 10^3/uL (0.5-4.7); ABSOLUTE MONOCYTES (AUTO) 0.7 10^3/uL (0.1-1.4); ABSOLUTE NEUT (AUTO) 4.4 10^3/uL (1.7-8.2); BASOPHILS % (AUTO) 0.7 % (0-2); EOSINOPHILS % (AUTO) 1.9 % (0-6); HEMATOCRIT 48.1 % (37.9-51.0); HEMOGLOBIN 15.6 g/dL (13.5-17.0); HGB HCT DIFFERENCE -1.3; LYMPHOCYTES % (AUTO) 25.4 % (13-45); MEAN CORPUSCULAR HEMOGLOBIN 29.6 pg (27.0-33.4); MEAN CORPUSCULAR HGB CONC 32.5 g/dL (32.0-36.0); MEAN CORPUSCULAR VOLUME 91 fl (80-97); MONOCYTES % (AUTO) 10.1 % (3-13); RED BLOOD COUNT 5.27 10^6/uL (4.35-5.55); RED CELL DISTRIBUTION WIDTH 13.4 % (11.5-14.0); SEGMENTED NEUTROPHILS % (AUTO) 61.9 % (42-78); WHITE BLOOD COUNT 7.1 10^3/uL (4.0-10.5)
[2017-04-02 11:16] LABS: ANION GAP 9 (5-19); BLOOD UREA NITROGEN 12 mg/dL (7-20); CALCIUM 9.1 mg/dL (8.4-10.2); CARBON DIOXIDE 26 mmol/L (22-30); CHLORIDE 106 mmol/L (98-107); GLUCOSE 87 mg/dL (75-110); POTASSIUM 4.3 mmol/L (3.6-5.0); SODIUM 141.4 mmol/L (137-145)
--- NOTE | 2017-04-02 11:31 | RADIOLOGY REPORT (SQ) ---
EXAM DESCRIPTION: CHEST PA/LATERAL COMPLETED DATE/TIME: 04/02/2017 11:04 am REASON FOR STUDY: PRE-OP COMPARISON: Two-view chest 02/24/2017 EXAM PARAMETERS: NUMBER OF VIEWS: two views TECHNIQUE: Digital Frontal and Lateral radiographic views of the chest acquired. RADIATION DOSE: NA LIMITATIONS: none FINDINGS: LUNGS AND PLEURA: No opacities, masses or pneumothorax. No pleural effusion. MEDIASTINUM AND HILAR STRUCTURES: No masses or contour abnormalities. HEART AND VASCULAR STRUCTURES: Heart normal size. No evidence for failure. BONES: No acute findings. HARDWARE: None in the chest. OTHER: No other significant finding. IMPRESSION: NO SIGNIFICANT RADIOGRAPHIC FINDING IN THE CHEST. TECHNICAL DOCUMENTATION: JOB ID: [id number] [employer]- All Rights Reserved
[~2017-04-05 12:33] MED LIST changes: -CEFAZOLIN 2 GM/D5W RTU 2 GM/50 ML RTUPB IV PRN; -DEXAMETHASONE SOD PHOSPHATE INJ 4 MG/1 ML VIAL ONE; +LACTATED RINGERS 1000 ML IV PRN; +LIDOCAINE 0.5% INJ-PF (5 MG/ML) 50 ML SDV SUBCUT PRN; -LIDOCAINE 2% INJ-PF (20 MG/ML) 10 ML AMPUL ONE; -ONDANSETRON HCL INJ/PF 4 MG/2 ML SDV ONE; -SUCCINYLCHOLINE CHLORIDE INJ 200 MG/10 ML VIAL ONE
[2017-04-05] MEDS ORDERED: HYDROMORPHONE HCL INJ/PF 2 MG/ML AMPULE ONE (16:02)
[2017-04-05] MEDS ORDERED: ONDANSETRON HCL INJ/PF 4 MG/2 ML SDV ONE ×2 (16:35→19:02)
[2017-04-05] MEDS ORDERED: MIDAZOLAM 2 MG/2 ML INJ ONE (16:35)
[2017-04-05] MEDS ORDERED: FENTANYL CITRATE INJ/PF 100 MCG/2 ML AMPUL ONE (16:35)
[2017-04-05] MEDS ORDERED: PROPOFOL INJ 200 MG/20 ML VIAL IV ONE (16:36)
[2017-04-05] MEDS ORDERED: BUPIVACAINE HCL 0.5 % INJ/PF 30 ML SDV ONE ×2 (16:38→18:06)
[2017-04-05] MEDS: CEFAZOLIN 2 GM/D5W RTU 2 GM/50 ML RTUPB IV PRN ×3 (16:48→22:59)
[2017-04-05] MEDS ORDERED: OXYCODONE-ACETAMINOPHEN 5-325 MG TABLET PO PRN ×2 (17:26)
[2017-04-05] MEDS ORDERED: FENTANYL CITRATE INJ/PF 100 MCG/2 ML AMPUL IV PRN ×3 (17:26)
[2017-04-05] MEDS ORDERED: DIPHENHYDRAMINE HCL 50 MG/ML VIAL IV PRN (17:26)
[2017-04-05] MEDS ORDERED: MEPERIDINE HCL/PF INJ 25 MG/1 ML DISP.SYRIN IV PRN (17:26)
[2017-04-05] MEDS ORDERED: PROMETHAZINE HCL INJ 25 MG/1 ML VIAL IV PRN ×2 (17:26)
[2017-04-05] MEDS ORDERED: MORPHINE SULFATE 10 MG/ML INJ IV PRN (17:26)
[2017-04-05] MEDS ORDERED: DEXAMETHASONE SOD PHOSPHATE INJ 4 MG/1 ML VIAL ONE (19:02)
[2017-04-05] MEDS: FENTANYL CITRATE INJ/PF 100 MCG/2 ML AMPUL ONE ×2 (19:05→19:10)
[2017-04-05] MEDS: HYDROMORPHONE HCL INJ/PF 2 MG/ML AMPULE IV PRN ×2 (20:24→22:32)
--- NOTE | 2017-04-05 21:29 | Operative Report ---
Operative Report DATE OF SURGERY: 04/05/17 PREOPERATIVE DIAGNOSIS: Chronic osteomyelitis of left calcaneus POSTOPERATIVE DIAGNOSIS: Same OPERATION: Left below the knee amputation SURGEON: NIDIA NANCE ANESTHESIA: GA TISSUE REMOVED OR ALTERED: Amputated limb COMPLICATIONS: None ESTIMATED BLOOD LOSS: 40 mL INTRAOPERATIVE FINDINGS: As above PROCEDURE: After receiving preoperative antibiotics patient was brought to the operating room where he was induced and intubated in the supine position. A thigh tourniquet was applied to the left lower extremity and the left lower extremity was prepped and draped in a normal sterile surgical fashion. Esmarch was used to exsanguinate the extremity and the tourniquet was inflated to 300 mmHg. [place] incision was done about 15 cm distal to the joint line and about 10 cm distal to the tibial tubercle. Skin graft was used to do the skin incision and then electrocautery was used to dissect and obtain hemostasis of the skin bleeders. I was able then to do a exposure of the tibia and cut at 2 cm above the incision site. I also beveled the anterior portion of the tibia and rounded off the edges. I proceeded to cut the musculature and from the peroneal vessels and peroneal nerve. I was able to ligate the vessels and cut the nerve. I did inject some Marcaine into the nerve to help with pain. Further dissection exposed the anterior tibial artery which was ligated as well. I used 2-0 silk to do all my ligations. I exposed the fibula and cut about a centimeter or 2 above the tibia. This was done with a saw. I cut the gastrocnemius and soleus and expose the posterior tibial artery and the tibial nerve. Was able to ligate the vessels with a 2-0 silk and truncate the vessel of the tibial nerve. Prior to truncating the tibial nerve I did inject approximately with Marcaine. I proceeded to use a posterior muscular flap to reapproximate and cover the distal end of the tibia. Used 0 Vicryl to approximate the tissue to the fascial layer anteriorly. At this point the tourniquet was let down after 39 minutes to see if there is any active bleeders. I was pleasantly surprised to see that the patient had no active bleeding and then we proceeded to close the wound. I used 0 Vicryl to approximate the cutaneous tissue and used a combination of nabil and 2-0 nylon. A 2-0 nylon was used to do horizontal mattress and then nabil in between the sutures. There is no dog ears present. Was able to approximate the edges successfully. The extremity was cleaned and then Xeroform was applied. 4 x 4 dressing, abdominal pads and then Kerlix was applied and then overwrapped with Coban. The drapes were removed and tourniquet was removed and the patient was successfully extubated and sent to PACU in a stable condition.
[2017-04-06] MEDS: HYDROMORPHONE HCL INJ/PF 2 MG/ML AMPULE IV PRN ×8 (00:14→20:52)
[2017-04-06] MEDS ORDERED: CEFAZOLIN INJ 1 GM VIAL ONE (03:06)
[2017-04-06] MEDS: CEFAZOLIN 2 GM/D5W RTU 2 GM/50 ML RTUPB IV SCH ×3 (03:30→17:15)
[2017-04-06] MEDS ORDERED: NICOTINE 21 MG/24 HR PATCH.TD24 TD ONE (04:45)
[2017-04-06 05:01] LABS: HEMATOCRIT 46.9 % (37.9-51.0); HEMOGLOBIN 15.5 g/dL (13.5-17.0); HGB HCT DIFFERENCE -0.4; MEAN CORPUSCULAR HEMOGLOBIN 29.8 pg (27.0-33.4); MEAN CORPUSCULAR VOLUME 90 fl (80-97); RED BLOOD COUNT 5.19 10^6/uL (4.35-5.55); RED CELL DISTRIBUTION WIDTH 13.3 % (11.5-14.0); WHITE BLOOD COUNT 14.3 10^3/uL (4.0-10.5)
[2017-04-06 05:23] LABS: ANION GAP 12 (5-19); BLOOD UREA NITROGEN 10 mg/dL (7-20); CALCIUM 9.4 mg/dL (8.4-10.2); CARBON DIOXIDE 24 mmol/L (22-30); CHLORIDE 104 mmol/L (98-107); CREATININE RESULT 0.86 mg/dL (0.52-1.25); GLUCOSE 133 mg/dL (75-110); POTASSIUM 4.8 mmol/L (3.6-5.0); SODIUM 140.2 mmol/L (137-145)
[2017-04-06] MEDS ORDERED: OXYCODONE HCL IR 5 MG TABLET PO ONE (14:00)
--- NOTE | 2017-04-06 18:14 | PDOC PROGRESS REPORT ---
Subjective Progress Note for:: 04/06/17 Subjective:: Patient states having significant pain but is very happy he no longer has the chronic heel pain that he suffered for almost a year. He states he has no other complaints overnight issues overnight. Physical Exam Vital Signs: Temp Pulse Resp BP Pulse Ox 37.1 C 73 16 125/88 H 99 04/06/17 12:00 04/06/17 12:00 04/06/17 12:00 04/06/17 12:00 04/06/17 12:00 Intake & Output 04/05/17 04/06/17 04/07/17 06:59 06:59 06:59 Intake Total 1250 1510 Output Total 100 2145 Balance 1150 -635 Weight 75.5 kg Musculoskeletal exam: PRESENT: other - Left lower extremity stump dressing dry clean and intact. Drain is intact with very little drainage. Results Laboratory Results: 04/06/17 04:11 04/06/17 04:11 04/06/17 04/06/17 04:11 04:11 WBC 14.3 H RBC 5.19 Hgb 15.5 Hct 46.9 MCV 90 MCH 29.8 MCHC 33.0 RDW 13.3 Plt Count 216 Sodium 140.2 Potassium 4.8 Chloride 104 Carbon Dioxide 24 Anion Gap 12 BUN 10 Creatinine 0.86 Est GFR ( Amer) > 60 Est GFR (Non-Af Amer) > 60 Glucose 133 H Calcium 9.4 Impressions: Chest X-Ray 04/02/17 10:36 IMPRESSION: NO SIGNIFICANT RADIOGRAPHIC FINDING IN THE CHEST. Assessment & Plan - Plan Summary Plan Summary: 41-year-old gentleman postop day 1 from left below the knee amputation. Keep the dressing and drain until discharge. Once patient is ready to be discharged the dressing change for wound check and to pull the drain. Patient only had IV Dilaudid overnight and did not take his home Lyrica and oxycodone. We will resume that today to get him off of the IV Dilaudid as soon as possible. When this is possible then we will be able to discharge the patient. Patient participating with physical therapy and was able to ambulate with a walker and crutches. We will provide him crutches before discharge.
[2017-04-06] MEDS: OXYCODONE HCL IR 5 MG TABLET PO PRN ×2 (18:37→22:46)
[2017-04-06] MEDS ORDERED: NICOTINE 21 MG/24 HR PATCH.TD24 TD SCH (22:00)
[2017-04-06] MEDS: PREGABALIN 50 MG CAPSULE PO SCH (22:45)
[2017-04-07] MEDS: HYDROMORPHONE HCL INJ/PF 2 MG/ML AMPULE IV PRN ×3 (00:30→09:02)
[2017-04-07] MEDS: CEFAZOLIN 2 GM/D5W RTU 2 GM/50 ML RTUPB IV SCH ×2 (02:21→09:10)
[2017-04-07] MEDS: OXYCODONE HCL IR 5 MG TABLET PO PRN ×3 (02:22→10:19)
[2017-04-07 05:18] LABS: HEMATOCRIT 46.8 % (37.9-51.0); HEMOGLOBIN 15.6 g/dL (13.5-17.0); MEAN CORPUSCULAR HGB CONC 33.3 g/dL (32.0-36.0); MEAN CORPUSCULAR VOLUME 90 fl (80-97); RED CELL DISTRIBUTION WIDTH 13.2 % (11.5-14.0); WHITE BLOOD COUNT 11.3 10^3/uL (4.0-10.5)
[2017-04-07 05:43] LABS: ANION GAP 13 (5-19); BLOOD UREA NITROGEN 9 mg/dL (7-20); CALCIUM 9.2 mg/dL (8.4-10.2); CARBON DIOXIDE 27 mmol/L (22-30); CHLORIDE 97 mmol/L (98-107); CREATININE RESULT 0.86 mg/dL (0.52-1.25); GLUCOSE 124 mg/dL (75-110); SODIUM 137.4 mmol/L (137-145)
--- NOTE | 2017-04-07 08:36 | PDOC DISCHARGE SUMMARY ---
General - Admit/Disc Date/PCP Admission Date/Primary Care Provider: 04/05/17 12:33 SUKHWINDER REYNA MD Discharge Date: 04/07/17 - Discharge Diagnosis (1) Intractable pain Is this a current diagnosis for this admission?: Yes - Additional Information Resuscitation Status: Full Code Discharge Diet: As Tolerated, Regular Discharge Activity: Balance Activity w/Rest, No Driving, No tub bath Home Medications: Biotin 1 tab PO DAILY 04/02/17 Oxycodone HCl [Roxicodone] 20 mg PO Q4HP PRN 04/02/17 Pregabalin [Lyrica] 1 cap PO Q12 04/02/17 Bupropion HCl [Wellbutrin Sr 150 mg Tablet] 1 tab PO Q12 04/06/17 Polyethylene Glycol 3350 [Miralax Powder 17 gm/Packet] 1 packet PO DAILY History of Present Illness History of Present Illness: ORIANA VALENCIA is a 41 year old male a long and complicated history regarding left calcaneal pain and potential osteomyelitis Hospital Course Hospital Course: Admitted for an elective left below-knee amputation. He undergoes the procedure without complication. Is returned to the floor in satisfactory condition. Analgesia remains complicated and includes large doses of opioids. Wound drain remains intact and continues to be productive. Physical Exam Vital Signs: Temp Pulse Resp BP Pulse Ox 37.2 C 88 19 139/82 H 98 04/07/17 04:29 04/07/17 04:29 04/07/17 04:29 04/07/17 04:29 04/07/17 04:29 Intake & Output 04/06/17 04/07/17 04/08/17 06:59 06:59 06:59 Intake Total 1250 3260 Output Total 100 4495 Balance 1150 -1235 Weight 75.5 kg General appearance: PRESENT: mild distress Head exam: PRESENT: normocephalic Eye exam: PRESENT: EOMI Respiratory exam: PRESENT: unlabored Cardiovascular exam: PRESENT: RRR Vascular exam: PRESENT: normal capillary refill GI/Abdominal exam: PRESENT: soft Rectal exam: PRESENT: deferred Extremities exam: PRESENT: other - Left lower extremity dressing is clean dry and intact. The underlying Murtaza-York drain is patent and the bulb has serosanguineous fluid in it. Psychiatric exam: PRESENT: appropriate affect, normal mood. ABSENT: homicidal ideation, suicidal ideation Skin exam: PRESENT: dry, intact, warm. ABSENT: cyanosis, rash Results Laboratory Results: 04/07/17 04:13 04/07/17 04:13 04/07/17 04/07/17 04:13 04:13 WBC 11.3 H RBC 5.20 Hgb 15.6 Hct 46.8 MCV 90 MCH 30.0 MCHC 33.3 RDW 13.2 Plt Count 187 Sodium 137.4 Potassium 4.0 Chloride 97 L Carbon Dioxide 27 Anion Gap 13 BUN 9 Creatinine 0.86 Est GFR ( Amer) > 60 Est GFR (Non-Af Amer) > 60 Glucose 124 H Calcium 9.2 Impressions: Chest X-Ray 04/02/17 10:36 IMPRESSION: NO SIGNIFICANT RADIOGRAPHIC FINDING IN THE CHEST. Status: Imported from PACS Plan Discharge Plan: To be discharged home with oral analgesics. Patient to empty and record the volumes in the Murtaza York drain every 8 hours. Follow-up will be with Dr. melara in the [facility] for surgery on Sunday. Time Spent: Less than 30 Minutes
[2017-04-07] MEDS: PREGABALIN 50 MG CAPSULE PO SCH (09:10)
[2017-04-07] MEDS ORDERED: BIOTIN PO SCH (10:00)
[2017-04-07 10:29] VITALS: BP 139/82
== END 2017-04-07 11:00 | disposition home or self-care (01) | DRG 476 ==
LOC: INOR 12:33 → 4N 19:52
PROVIDERS: ADMIT Orthopaedic Surgery; ATTEND Orthopaedic Surgery
PROC: 0Y6J0Z3 Detachment at Left Lower Leg, Low, Open Approach (ICD-10-PCS; principal; 2017-04-05 15:00)
DX: M86.672 Other chronic osteomyelitis, left ankle and foot (principal); G89.29 Other chronic pain
CPT/HCPCS: 01482; 36415; 71020; 80048; 81001; 85025; 85027; 88307; J0690; J1100; J1170; J2250; J2405; J2704; J3010; J3490

== ENCOUNTER 2017-11-16 19:41 | Emergency (ER) | payer MEDICAID ==
[2017-11-16] MEDS ORDERED: OXYCODONE HCL SR 10 MG TABLET PO ONE (20:04)
[2017-11-16 20:36] LABS: ABSOLUTE BASOPHILS # (AUTO) 0.1 10^3/uL (0.0-0.2); ABSOLUTE LYMPHOCYTES (AUTO) 1.3 10^3/uL (0.5-4.7); ABSOLUTE MONOCYTES (AUTO) 0.5 10^3/uL (0.1-1.4); ABSOLUTE NEUT (AUTO) 8.1 10^3/uL (1.7-8.2); BASOPHILS % (AUTO) 0.7 % (0-2); HEMATOCRIT 44.9 % (37.9-51.0); HEMOGLOBIN 15.4 g/dL (13.5-17.0); MEAN CORPUSCULAR HEMOGLOBIN 30.3 pg (27.0-33.4); MEAN CORPUSCULAR HGB CONC 34.3 g/dL (32.0-36.0); MEAN CORPUSCULAR VOLUME 89 fl (80-97); MONOCYTES % (AUTO) 4.7 % (3-13); PLATELET COUNT 206 10^3/uL (150-450); RED BLOOD COUNT 5.08 10^6/uL (4.35-5.55); RED CELL DISTRIBUTION WIDTH 13.7 % (11.5-14.0); SEGMENTED NEUTROPHILS % (AUTO) 81.6 % (42-78); TOTAL CELLS COUNTED % (AUTO) 100 %; WHITE BLOOD COUNT 9.9 10^3/uL (4.0-10.5)
[2017-11-16 21:00] LABS: BLOOD UREA NITROGEN 8 mg/dL (7-20); CALCIUM 9.6 mg/dL (8.4-10.2); GLUCOSE 112 mg/dL (75-110)
[2017-11-16 21:01] LABS: ALANINE AMINOTRANSFERASE 36 U/L (21-72); ALBUMIN 4.2 g/dL (3.5-5.0); ALKALINE PHOSPHATASE 70 U/L (38-126); ANION GAP 9 (5-19); ASPARTATE AMINO TRANSFERASE 27 U/L (17-59); BILIRUBIN,DIRECT 0.5 mg/dL (0.0-0.4); BILIRUBIN,TOTAL 0.7 mg/dL (0.2-1.3); CARBON DIOXIDE 26 mmol/L (22-30); CHLORIDE 108 mmol/L (98-107); SODIUM 142.8 mmol/L (137-145); TOTAL PROTEIN 6.6 g/dL (6.3-8.2)
[2017-11-16 21:02] LABS: ACETAMINOPHEN < 10 ug/mL (10-30); ALCOHOL < 10 mg/dL (NONE DETECTED); SALICYLATE < 1.0 mg/dL (2.0-20.0)
[2017-11-16 21:36] LABS: APPEARANCE,URINE CLEAR; BILIRUBIN,URINE NEGATIVE (NEGATIVE); COLOR,URINE STRAW; GLUCOSE, URINE NEGATIVE (NEGATIVE); KETONES,URINE TRACE mg/dL (NEGATIVE); LEUKOCYTE ESTERASE,URINE NEGATIVE (NEGATIVE); NITRITE,URINE NEGATIVE (NEGATIVE); PROTEIN,URINE NEGATIVE (NEGATIVE); URINE SPECIFIC GRAVITY 1.005; UROBILINOGEN,URINE NEGATIVE mg/dL (<2.0)
[2017-11-16 21:51] LABS: URINE AMPHETAMINES SCREEN NEGATIVE; URINE BARBITURATES SCREEN NEGATIVE; URINE BENZODIAZEPINES SCREEN NEGATIVE; URINE COCAINE SCREEN NEGATIVE; URINE MARIJUANA (THC) SCREEN NEGATIVE; URINE METHADONE SCREEN NEGATIVE; URINE PHENCYCLIDINE SCREEN NEGATIVE
[2017-11-16] MEDS ORDERED: HALOPERIDOL 5 MG TABLET PO ONE (23:08)
[2017-11-16] MEDS ORDERED: DIPHENHYDRAMINE HCL 50 MG CAPSULE PO ONE (23:08)
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
[2017-11-17 07:17] VITALS: BP 107/62
--- NOTE | 2017-11-17 08:56 | EKG REPORT ---
SEVERITY:- NORMAL ECG - SINUS RHYTHM : Confirmed by: Sherwin Gan MD 17-Nov-2017 08:55:13
--- NOTE | 2017-11-17 10:05 | ER Document Report ---
Doctor's Note Notes: 11/17/17 10:05 42-year-old male with past medical history of bipolar and depression recently inpatient at a psychiatric facility started on a new medication who presents with some auditory hallucinations as well as suicidal or homicidal ideations. Vital signs stable. Labs as recorded. Patient is currently calm and cooperative. Awaiting psychology evaluation. 11/17/17 13:30 Patient has been accepted to [facility] and transport is here.
[2017-11-17] MEDS ORDERED: HYDROCODONE/ACETAMINOPHEN 5-325 MG TABLET PO ONE (10:58)
== END 2017-11-17 13:36 ==
LOC: ER 19:41
DX: R45.851 Suicidal ideations (principal); R45.850 Homicidal ideations; G89.29 Other chronic pain; F31.9 Bipolar disorder, unspecified
CPT/HCPCS: 93005; 99285; 36415; 80307 ×4; 85025; 80053; 81001; 93010; J3490 ×3

== ENCOUNTER 2018-06-10 05:43 | Emergency (ER) | payer MEDICAID ==
[2018-06-10 05:57] VITALS: BP 135/88
[2018-06-10] MEDS ORDERED: OXYCODONE-ACETAMINOPHEN 5-325 MG TABLET PO ONE (07:46)
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
[2018-06-10] MEDS ORDERED: HYDROCODONE/ACETAMINOPHEN 5-325 MG (6 TAB/ER DISP) PO ONE (10:28)
== END 2018-06-10 10:33 | disposition home or self-care (01) ==
LOC: ER 05:43
DX: S16.1XXA Strain of muscle, fascia and tendon at neck level, initial encounter (principal); M79.605 Pain in left leg; W18.30XA Fall on same level, unspecified, initial encounter; Z89.612 Acquired absence of left leg above knee
CPT/HCPCS: 72125; 99284

== ENCOUNTER 2018-11-13 01:04 | Emergency (ER) | payer MEDICAID ==
[2018-11-13 01:17] VITALS: BP 137/85
== END 2018-11-13 03:58 | disposition left against medical advice (07) ==
LOC: ER 01:04
DX: Z53.21 Procedure and treatment not carried out due to patient leaving prior to being seen by health care provider (principal)

== ENCOUNTER 2019-10-03 13:49 | Emergency (ER) | payer MEDICAID, MEDICARE ==
[2019-10-03] MEDS ORDERED: IBUPROFEN 800 MG TABLET PO ONE (14:04)
--- NOTE | 2019-10-03 14:05 | ER Document Report ---
ED Medical Screen (RME) - General Chief Complaint: Back Pain Stated Complaint: BACK PAIN Time Seen by Provider: 10/03/19 14:01 TRAVEL OUTSIDE OF THE [place] IN LAST 30 DAYS: No - HPI Notes: 10/03/19 14:04 Patient is a 44-year-old male with no significant past medical history aside from amputation left distal leg who presents complaining of midline low back pain status post fall down some steps 4 to 5 days ago. Patient states that he was seen at another emergency department at that time and had negative x-rays and given pain medicine. Patient states that his pains are getting more severe over the past couple days. He is able to eat and drink without difficulty. He is urinating normally and having normal bowel movements. No fever. I have treated and performed a rapid initial assessment of this patient. A comprehensive ED assessment and evaluation of the patient, analysis of test results and completion of medical decision making process will be conducted by additional ED providers. PHYSICAL EXAMINATION: GENERAL: Well-appearing, well-nourished and in no acute distress. A&Ox4. Answers questions appropriately. Back: + tenderness to midline around L2 +/-. SLR neg. No paraspinal tend erness. FROM otherwise. - Related Data Allergies/Adverse Reactions: gabapentin Allergy (Verified 10/03/19 13:56) piperacillin [From Zosyn] Allergy (Verified 10/03/19 13:56) pregabalin [From Lyrica] Allergy (Verified 10/03/19 13:56) tazobactam [From Zosyn] Allergy (Verified 10/03/19 13:56) Past Medical History - Past Medical History Cardiac Medical History: Pulmonary Medical History: Neurological Medical History: Renal/ Medical History: Denies: Hx Peritoneal Dialysis Musculoskeltal Medical History: Denies Hx Arthritis, Denies Hx Fibromyalgia, Denies Hx Muscular Dystrophy Psychiatric Medical History: Reports: Hx Bipolar Disorder, Hx Depression Traumatic Medical History: Denies: Hx Fractures Past Surgical History: Reports: Hx Appendectomy, Hx Orthopedic Surgery - oste omylitits L AKA. Denies: Hx Bowel Surgery, Hx Cholecystectomy, Hx Coronary Artery Bypass Graft, Hx Gastric Bypass Surgery, Hx Herniorrhaphy, Hx Pacemaker, Hx Tonsillectomy - Immunizations Hx Diphtheria, Pertussis, Tetanus Vaccination: Yes Physical Exam - Vital signs Vitals: Temp Pulse Resp BP Pulse Ox 98.2 F 78 18 138/80 H 97 10/03/19 13:53 10/03/19 13:53 10/03/19 13:53 10/03/19 13:53 10/03/19 13:53 Course - Vital Signs Vital signs: Temp Pulse Resp BP Pulse Ox 98.2 F 78 18 138/80 H 97 10/03/19 13:53 10/03/19 13:53 10/03/19 13:53 10/03/19 13:53 10/03/19 13:53
--- NOTE | 2019-10-03 14:47 | RADIOLOGY REPORT (SQ) ---
EXAM DESCRIPTION: CT LUMBAR SPINE WITHOUT COMPLETED DATE/TIME: 10/03/2019 2:21 pm REASON FOR STUDY: pain s/p fall COMPARISON: None. TECHNIQUE: Axial images acquired through the lumbar spine without intravenous contrast. Images revi ewed with lung, soft tissue and bone windows. Reconstructed coronal and sagittal MPR images reviewed . All images stored on PACS. All CT scanners at this facility use dose modulation, iterative reconstruction, and/or weight based d osing when appropriate to reduce radiation dose to as low as reasonably achievable (ALARA). [facility]: Dose Right [facility]: CareDose [facility]: Dose Right [facility]: Teradose 4D [facility]: [place] Depollution RADIATION DOSE: DLP 438.90 mGy cm LIMITATIONS: None. FINDINGS: SEGMENTATION: There are 5 lumbar-type vertebral bodies. There is no transition anatomy at the lumbosacral junction. ALIGNMENT: Normal. VERTEBRAL BODIES: The lumbar vertebral body heights are preserved. There is no fracture. DISCS: Evaluation of the spinal canal for stenosis is limited due to the absence of intrathecal contr ast. The intervertebral disc spaces are preserved. PEDICLES, TRANSVERSE PROCESSES: Chronic pars interarticularis defects at L5 without spondylolisthesis . FACETS, POSTERIOR ELEMENTS: Intact. There is no osteophytic foraminal stenosis. HARDWARE: None in the spine. VISUALIZED RIBS: No fractures. SOFT TISSUES: 3 mm right interpolar calyx without hydronephrosis (image 21 of series 602). OTHER: No other finding. IMPRESSION: Chronic bilateral pars interarticularis defects at L5 without spondylolisthesis. No acu te fracture or malalignment of the lumbar spine. TECHNICAL DOCUMENTATION: JOB ID: [id number] Quality ID # [id number]: Final reports with documentation of one or more dose reduction techniques (e.g., Au tomated exposure control, adjustment of the mA and/or kV according to patient size, use of iterative reconstruction technique) 2010 [employer]- All Rights Reserved Reading location - IP/workstation name: [email or web address]
[2019-10-03] MEDS ORDERED: HYDROCODONE/ACETAMINOPHEN 5-325 MG TABLET PO ONE (15:47)
[2019-10-03] MEDS ORDERED: LIDOCAINE 5% (700 MG) TRANSDERMAL ADH..PATCH TP ONE (15:47)
--- NOTE | 2019-10-03 15:53 | ER Document Report ---
HPI - HPI Patient complains to provider of: back pain Time Seen by Provider: 10/03/19 14:01 Onset: Other - 5 days Onset/Duration: Persistent Quality of pain: Sharp, Stabbing Pain Level: 4 Context: Patient states that he was attempting to go downstairs and lost his balance. Patient states that he fell down the remaining 3 stairs. Patient states that he lost his balance as he was attempting to maneuver with crutches and does have a history of a left AKA. Patient states that he landed hitting his buttocks on the steps. Patient complains of low back pain that is nonradiating since the fall. Patient states he was initially seen at another ER and they performed x- rays and gave him a muscle relaxer and tramadol. Patient denies any improvement of the pain symptoms. Patient denies any new injury. Patient denies any history of chronic back pain. Patient denies any fever, urinary retention or incontinence. No history of diabetes or IV drug use. Associated Symptoms: denies: Fever, Headache, Nausea, Vomiting Exacerbated by: Standing, Movement, Walking Relieved by: Denies Similar symptoms previously: No Recently seen / treated by doctor: Yes - ROS ROS below otherwise negative: Yes Systems Reviewed and Negative: Yes All other systems reviewed and negative - CONSTITUTIONAL Constitutional: DENIES: Fever, Chills - NEURO Neurology: DENIES: Weakness - GASTROINTESTINAL Gastrointestinal: DENIES: Nausea - MUSCULOSKELETAL Musculoskeletal: REPORTS: Back Pain - DERM Skin Color: Normal Skin Problems: None Past Medical History - General Information source: Patient - Social History Smoking Status: Current Every Day Smoker Frequency of alcohol use: None Drug Abuse: None Occupation: None Family History: DM Patient has suicidal ideation: No Patient has homicidal ideation: No - Past Medical History Cardiac Medical History: Reports: Hx Hypercholesterolemia Pulmonary Medical History: Neurological Medical History: Renal/ Medical History: Denies: Hx Peritoneal Dialysis Musculoskeletal Medical History: Denies Hx Arthritis, Denies Hx Fibromyalgia, Denies Hx Muscular Dystrophy Psychiatric Medical History: Reports: Hx Bipolar Disorder, Hx Depression Traumatic Medical History: Denies: Hx Fractures Past Surgical History: Reports: Hx Appendectomy, Hx Orthopedic Surgery - osteomylitits L AKA - Immunizations Hx Diphtheria, Pertussis, Tetanus Vaccination: Yes Vertical Provider Document - CONSTITUTIONAL Agree With Documented VS: Yes Exam Limitations: No Limitations General Appearance: WD/WN, No Apparent Distress - INFECTION CONTROL TRAVEL OUTSIDE OF THE [place] IN LAST 30 DAYS: No - HEENT HEENT: Atraumatic, Normocephalic - NECK Neck: Normal Inspection, Supple. negative: Lymphadenopathy-Left, Lymphadenopathy-Right - RESPIRATORY Respiratory: Breath Sounds Normal, No Respiratory Distress, Chest Non-Tender - CARDIOVASCULAR Cardiovascular: Regular Rate, Regular Rhythm, No Murmur - BACK Back: Abnormal Inspection Notes: Lower lumbar midline tenderness L 2-3-4 area, no step-off or deformity - MUSCULOSKELETAL/EXTREMETIES Musculoskeletal/Extremeties: MAEW - NEURO Level of Consciousness: Awake, Alert, Appropriate Motor/Sensory: No Motor Deficit Notes: No saddle anesthesia, no foot drop. Normal gait given history of previous left AKA - DERM Integumentary: Warm, Dry, No Rash Course - Re-evaluation Re-evalutation: 10/03/19 15:51 The patient presents with low back pain without signs of spinal cord compression, cauda equina syndrome, infection, aneurysm, or other serious aubrey ology. The patient is neurologically intact. Given the extremely risk of these diagnoses further testing and evaluation for these possibilities does not appear to be indicated at this time. Patient has been instructed to return if the symptoms worsen or change in any way. - Vital Signs Vital signs: Temp Pulse Resp BP Pulse Ox 98.2 F 78 18 138/80 H 97 10/03/19 13:53 10/03/19 13:53 10/03/19 13:53 10/03/19 13:53 10/03/19 13:53 - Diagnostic Test Radiology reviewed: Reports reviewed Discharge - Discharge Clinical Impression: Low back pain Qualifiers: Chronicity: acute Back pain laterality: midline Sciatica presence: without sciatica Qualified Code(s): M54.5 - Low back pain Fall Qualifiers: Encounter type: sequela Qualified Code(s): W19.XXXS - Unspecified fall, sequela Condition: Stable Disposition: HOME, SELF-CARE Instructions: Ice Packs ([facility]), Low Back Pain ([facility]), Oral Narcotic Medication ([facility]) Additional Instructions: Return immediately for any new or worsening symptoms Followup with your primary care provider, call tomorrow to make a followup appointment Follow-up with orthopedics for any persistent pain or problems Prescriptions: Lidocaine [Lidoderm 5% (700 mg) Transdermal Patch] 1 patch TP DAILY PRN #10 adh..patch PRN Reason: Naproxen [Naprosyn 250 Nmg Tablet] 1 tab PO BID #14 tablet Hydrocodone/Acetaminophen [[place] 5-325 mg Tablet] 1 tab PO Q6 PRN #8 tablet PRN Reason: Referrals: [facility] [Provider Group] - Follow up tomorrow
[2019-10-03 16:16] VITALS: BP 134/84
== END 2019-10-03 16:17 | disposition home or self-care (01) ==
LOC: ER 13:49
DX: M54.5 Low back pain (principal); W10.9XXA Fall (on) (from) unspecified stairs and steps, initial encounter; Z89.612 Acquired absence of left leg above knee; F17.200 Nicotine dependence, unspecified, uncomplicated
CPT/HCPCS: 99283; 72131; A9270 ×3

== ENCOUNTER 2020-01-28 04:40 | Emergency (ER) | payer MEDICARE ==
[2020-01-28 04:49] VITALS: BP 147/82
[2020-01-28] MEDS ORDERED: OXYCODONE HCL IR 5 MG TABLET PO ONE (04:56)
[2020-01-28] MEDS ORDERED: ONDANSETRON 4 MG TAB.RAPDIS PO ONE (04:56)
--- NOTE | 2020-01-28 05:03 | ER Document Report ---
ED Fall - General Chief Complaint: Fall Stated Complaint: LEFT LEG PAIN Time Seen by Provider: 01/28/20 04:49 Notes: Patient is a 44-year-old male that comes emergency department for chief complaint of a fall. He states that he was going outside to smoke when he slipped on the wet stair and mainly landed on his left stump. He has a left BKA. He states he also fell back and hit the back of his head. He states the stump area feels swollen and had sharp pain. He states he did vomit, he states he thinks he did so because of the pain in his leg. He denies a severe headache, visual changes, focal numbness or weakness, incontinence. He is not on a blood thinner but he did drink 2 beers earlier tonight. Patient is still able to ambulate with his crutches. He comes by EMS. TRAVEL OUTSIDE OF THE [place] IN LAST 30 DAYS: No - Related data Allergies/Adverse Reactions: gabapentin Allergy (Verified 10/03/19 13:56) piperacillin [From Zosyn] Allergy (Verified 10/03/19 13:56) pregabalin [From Lyrica] Allergy (Verified 10/03/19 13:56) tazobactam [From Zosyn] Allergy (Verified 10/03/19 13:56) Past Medical History - General Information source: Patient - Social History Smoking Status: Current Every Day Smoker Chew tobacco use (# tins/day): Yes - 1 EVERY 4 DAYS Frequency of alcohol use: None Drug Abuse: None Lives with: Alone Family History: DM Patient has homicidal ideation: No - Past Medical History Cardiac Medical History: Reports: Hx Hypercholesterolemia Pulmonary Medical History: Neurological Medical History: Renal/ Medical History: Denies: Hx Peritoneal Dialysis Musculoskeletal Medical History: Denies Hx Arthritis, Denies Hx Fibromyalgia, Denies Hx Muscular Dystrophy Psychiatric Medical History: Reports: Hx Bipolar Disorder, Hx Depression Traumatic Medical History: Denies: Hx Fractures Past Surgical History: Reports: Hx Appendectomy, Hx Orthopedic Surgery - osteomylitits L AKA. Denies: Hx Bowel Surgery, Hx Cholecystectomy, Hx Coronary Artery Bypass Graft, Hx Gastric Bypass Surgery, Hx Herniorrhaphy, Hx Pacemaker, Hx Tonsillectomy - Immunizations Hx Diphtheria, Pertussis, Tetanus Vaccination: Yes Review of Systems - Review of Systems Constitutional: No symptoms reported EENT: No symptoms reported Cardiovascular: No symptoms reported Respiratory: No symptoms reported Gastrointestinal: See HPI Genitourinary: No symptoms reported Male Genitourinary: No symptoms reported Musculoskeletal: See HPI Skin: No symptoms reported Hematologic/Lymphatic: No symptoms reported Neurological/Psychological: See HPI Physical Exam - Vital signs Vitals: Temp 98.0 F 01/28/20 04:41 - Notes Notes: GENERAL: Alert, interactive, occasionally winces and grabs at his left stump HEAD: Normocephalic. Small area of ecchymosis noted over the left occipital area without significant swelling, no wounds, no other signs of trauma. EYES: Pupils equal, round, and reactive to light. Extraocular movements intact. ENT: Oral mucosa moist, tongue midline. Oropharynx unremarkable. Airway patent. Nares patent, sinuses non-tender, ear canals unremarkable, TM's intact. NECK: Full range of motion. Supple. Trachea midline. No lymphadenopathy. LUNGS: Clear to auscultation bilaterally, no wheezes, rales, or rhonchi. No respiratory distress. Non-tender chest wall. HEART: Regular rate and rhythm. No murmur ABDOMEN: Soft, non-tender. Non-distended. Bowel sounds present in all 4 quadrants. GENITOURINARY: Deferred EXTREMITIES: Left BKA. The stump does have some soft tissue swelling and tenderness although there is no open wound, severe swelling, or other concerning finding noted. Old scar at the left hip consistent with replacement. Minimal tenderness with palpation over the left hip area generally. Right lower extremity is completely unremarkable. Normal upper extremities. BACK: no cervical, thoracic, lumbar midline tenderness. No saddle anesthesia, normal distal neurovascular exam. NEUROLOGICAL: Alert and oriented x3. Normal speech. Cranial nerves II through XII grossly intact. PSYCH: Normal affect, normal mood. SKIN: Warm, dry, normal turgor. No rashes or lesions noted. Course - Re-evaluation Re-evalutation: CT of the head and neck are negative for any acute findings. X-ray of the left hip and left femur show soft tissue swelling but no acute findings. Patient with no open wounds or neurological deficits. On reevaluation patient is comfortable and has no additional complaints. Discussed details, recommendations, head and precautions at length. Patient states he will go stay with his friend today. Discussed return precautions. Patient states appreciation and agreement, stable and well-appearing at time of discharge. - Vital Signs Vital signs: Temp Pulse Resp BP Pulse Ox 98.0 F 109 H 16 147/82 H 95 01/28/20 04:46 01/28/20 04:46 01/28/20 04:46 01/28/20 04:46 01/28/20 04:46 Discharge - Discharge Clinical Impression: Fall Qualifiers: Encounter type: initial encounter Qualified Code(s): W19.XXXA - Unspecified fall, initial encounter Head injury Qualifiers: Encounter type: initial encounter Qualified Code(s): S09.90XA - Unspecified injury of head, initial encounter Left leg injury Qualifiers: Encounter type: initial encounter Qualified Code(s): S89.92XA - Unspecified injury of left lower leg, initial encounter Condition: Stable Disposition: HOME, SELF-CARE Additional Instructions: Your imaging of the leg shows soft tissue swelling, ice the area 3-4 times a day, elevate, take [id number] anti-inflammatories. Symptoms should resolve with time. Your imaging did not show any fractures or concerning findings. Please follow head injury precautions listed below. Follow-up with primary care on Sunday as discussed. Return for any concerning or worsening symptoms. Head Injury Precautions At this point, there is no evidence that your head injury is serious. Observation is necessary, however. Limit activity for the first 24 hours. During the first 24 hours, check to see approximately every two to three hours that the patient is easily arousable, responds normally, and can perform common tasks such as walking without difficulty. Contact your doctor or go to the hospital if any of the following things occur: Persistent vomiting, difficulty in arousing the patient, worsening or continued headache, or failure to improve as expected. Head injuries can cause symptoms that persist for a few days or even a few weeks.
--- NOTE | 2020-01-28 06:41 | RADIOLOGY REPORT (SQ) ---
EXAM DESCRIPTION: CT CERVICAL SPINE WITHOUT IV CONTRAST COMPLETED DATE/TME: 01/28/2020 04:56 CLINICAL HISTORY: 44 years Male, fall, contusion to occiput, EtOH Comparison: 06/10/18 Technique: No contrast. Coronal and sagittal reformat. This exam was performed according to our departmental dose-optimization program, which includes automated exposure control, adjustment of the mA and/or kV according to patient size and/or use of iterative reconstruction technique.[facility]: Dose Right [facility]: CareDose [facility]: Dose Right [facility]: Teradose 4D [facility]: FRM Study Course LIMITATIONS: None Findings: Normal alignment. Normal curvature. No fracture. Mild-moderate posterior C6 vertebral height loss, minimal posterior C7 vertebral height loss, mild anterior T1 vertebral height loss, stable. Mild spondylosis at C5-C6 with mild bilateral foraminal stenosis. Partially imaged nuchal soft tissues, inferior cranium, and upper thorax appear otherwise grossly intact. IMPRESSION: No acute findings.
--- NOTE | 2020-01-28 06:43 | RADIOLOGY REPORT (SQ) ---
EXAM DESCRIPTION: CT HEAD WITHOUT IV CONTRAST COMPLETED DATE/TME: 01/28/2020 04:56 CLINICAL HISTORY: 44 years Male, fall, contusion to occiput, EtOH COMPARISON: None. TECHNIQUE: No contrast. Coronal and sagittal reformat. This exam was performed according to our departmental dose-optimization program, which includes automated exposure control, adjustment of the mA and/or kV according to patient size and/or use of iterative reconstruction technique. FINDINGS: No hemorrhage or infarct. No mass, mass effect, or midline shift. Small left maxillary mucosal thickening. Brain and extra-axial structures appear otherwise intact. IMPRESSION: No acute findings.
--- NOTE | 2020-01-28 06:55 | RADIOLOGY REPORT (SQ) ---
EXAM DESCRIPTION: XR FEMUR 2 VIEWS COMPLETED DATE/TME: 01/28/2020 04:56 CLINICAL HISTORY: 44 years Male, fall, pain COMPARISON: 06/10/18 Findings: Two screw fixation of the left femoral neck. No evidence of metal fracture or loosening. Mild diffuse swelling. Amputation/stump site at the distal left upper leg at the level of the distal left femoral diaphysis with adjacent soft tissue clips. Bones, joints, and soft tissues of the LEFT XR FEMUR 2 VIEWS appear otherwise unremarkable. IMPRESSION: Swelling.
--- NOTE | 2020-01-28 07:00 | RADIOLOGY REPORT (SQ) ---
EXAM: XR Left Hip With Pelvis When Performed, 2 Views EXAM DATE/TIME: 01/28/2020 6:07 AM CLINICAL HISTORY: The patient is 44 years old and is Male; fall, pain TECHNIQUE: Two views of the left hip with pelvis when performed. COMPARISON: Radiographs of the left femur from 06/10/2018 FINDINGS: BONES/JOINTS: Bilateral hip joints are well-maintained. No dislocation. [address] within the left femoral neck, stabilizing a subacute or chronic subcapital femoral neck fracture. No obvious acute fracture. 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 SOFT TISSUES: No significant soft tissue abnormalities visualized. VASCULATURE: Pelvic phleboliths noted. IMPRESSION: No acute findings.
[2020-01-28] MEDS ORDERED: HYDROCODONE/ACETAMINOPHEN 5-325 MG (6 TAB/ER DISP) PO PRN (07:12)
== END 2020-01-28 07:20 | disposition home or self-care (01) ==
LOC: ER 04:40
DX: S09.90XA Unspecified injury of head, initial encounter (principal); S89.92XA Unspecified injury of left lower leg, initial encounter; W10.9XXA Fall (on) (from) unspecified stairs and steps, initial encounter; F17.210 Nicotine dependence, cigarettes, uncomplicated; Z89.512 Acquired absence of left leg below knee; E78.00 Pure hypercholesterolemia, unspecified
CPT/HCPCS: 99284; 73552; 73502; 70450; 72125; A9270 ×3; S0119

== ENCOUNTER 2020-02-13 03:00 | Emergency (ER) | payer MEDICARE ==
[2020-02-13 03:11] VITALS: BP 151/86
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
[2020-02-13] MEDS ORDERED: FENTANYL CITRATE INJ/PF 100 MCG/2 ML AMPUL IM ONE (04:27)
[2020-02-13] MEDS ORDERED: PROMETHAZINE HCL INJ 25 MG/1 ML VIAL IM ONE (04:27)
[2020-02-13] MEDS ORDERED: HYDROCODONE/ACETAMINOPHEN 5-325 MG (6 TAB/ER DISP) PO PRN (05:24)
--- NOTE | 2020-02-13 05:48 | RADIOLOGY REPORT (SQ) ---
EXAM DESCRIPTION: XR LUMBAR SPINE ANTEROPOSTERIOR, LATERAL, AND OBLIQUES, XR SACROILIAC JOINT 3 OR MORE VIEWS COMPLETED DATE/TME: 02/13/2020 04:39 CLINICAL HISTORY: 44 years Male, fall COMPARISON: CT, lumbar spine, October 03, 2019 Findings: Chronic bilateral L5 spondylolyses. Three screw fixation of the left proximal femur partially imaged. Normal alignment and curvature. Vertebral heights are maintained. Extraspinal structures are grossly intact. IMPRESSION: No acute findings of XR LUMBAR SPINE ANTEROPOSTERIOR, LATERAL, AND OBLIQUES, XR SACROILIAC JOINT 3 OR MORE VIEWS . Chronic bilateral L5 spondylolyses. .
== END 2020-02-13 06:01 | disposition home or self-care (01) ==
LOC: ER 03:00
DX: M54.5 Low back pain (principal); W01.0XXA Fall on same level from slipping, tripping and stumbling without subsequent striking against object, initial encounter; Y93.E9 Activity, other interior property and clothing maintenance; Y92.009 Unspecified place in unspecified non-institutional (private) residence as the place of occurrence of the external cause; Z87.891 Personal history of nicotine dependence; E78.00 Pure hypercholesterolemia, unspecified; Z89.612 Acquired absence of left leg above knee
CPT/HCPCS: 99285; 96372; 72110; 72202; J3010; J2550; A9270